=== PATIENT | female | born 1935 | race Caucasian/White ===

== ENCOUNTER 2019-08-23 21:18 | Observation (INO) | payer BC, MEDICARE ==
--- NOTE | 2019-08-23 23:15 | EDM.PDOC ---
ED HPI GENERAL MEDICAL PROBLEM - General Chief Complaint: Abdominal Pain Stated Complaint: ABDOMINAL PAIN Time Seen by Provider: 08/23/19 21:58 Source of Information: Reports: Patient History Limitations: Reports: No Limitations - History of Present Illness INITIAL COMMENTS - FREE TEXT/NARRATIVE: This is a 84yo F with pain of the right lower abdomen. She notes that she had the same pain 1 month ago and after discussing with a nurse and drinking plenty of fluids the pain resolved. She notes the pain returned today and was 10/10 pain. She had a few small BMs and noted the pain improved. She notes that the pain did come back and that is when she came to the ER. She denies any prior abdominal history except for a hysterectomy. No family history of IBD, or bowel issues. She denies hematochezia. She feels the pain more localized in the right lower quadrant. Onset: Gradual Duration: Hour(s):, Getting Worse, Waxing/Waning Location: Reports: Abdomen Quality: Reports: Ache Severity: Severe Improves with: Reports: None Worsens with: Reports: None Associated Symptoms: Reports: Loss of Appetite - Related Data Allergies Allergy/AdvReac Type Severity Reaction Status Date / Time hydrocodone bitartrate Allergy Itching Verified 12/30/14 18:06 [From Vicodin] penicillin Allergy Rash Verified 12/30/14 18:06 Oxycodone ? Allergy Redness Uncoded 12/30/14 18:06 Home Meds: Home Meds RX: Aspirin [Durlaza] 162.5 mg PO DAILY 01/03/15 [History] RX: Calcium Carbonate [Tums] 500 mg PO DAILY 01/03/15 [History] RX: Multivitamin [Multi-Vitamin Daily] 1 each PO DAILY 01/03/15 [History] RX: diphenhydrAMINE [Benadryl] 25 mg PO BEDTIME PRN 01/03/15 [History] RX: Acetaminophen [Tylenol] 650 mg PO Q6H PRN #0 tablet 01/09/15 [Rx] RX: Aspirin 162 mg PO BEDTIME tab.chew 01/09/15 [Rx] RX: Calcium Carbonate [Tums] 1,000 mg PO QID PRN #0 tab.chew 01/09/15 [Rx] RX: Docusate Sodium/Sennosides [Senna Plus] 1 tab PO BEDTIME PRN #0 tablet 01/09 [Rx] RX: Polyethylene Glycol 3350 [MiraLAX] 17 gm PO DAILY PRN #0 packet 01/09/15 [Rx ] RX: traMADol [Ultram] 100 mg PO TID PRN #0 tablet 01/09/15 [Rx] Past Medical History Gastrointestinal History: Reports: Other (See Below) Other Gastrointestinal History: abd pain one month ago Other [employer] History: hysterectomy - Past Surgical History Other Musculoskeletal Surgeries/Procedures:: R hip replacements x2, L hip replacments x2, carpal tunnel surgery B Social & Family History - Tobacco Use Smoking Status *Q: Never Smoker Second Hand Smoke Exposure: No - Caffeine Use Caffeine Use: Reports: Coffee, Tea Caffeine Use Comment: very little - Recreational Drug Use Recreational Drug Use: No - Living Situation & Occupation Living situation: Reports: Occupation: Retired ED ROS GENERAL - Review of Systems Review Of Systems: Comprehensive ROS is negative, except as noted in HPI. ED EXAM, GI/ABD - Physical Exam Exam: See Below Exam Limited By: No Limitations General Appearance: Alert, WD/WN, Mild Distress Eyes: Bilateral: EOMI Ears: Normal External Exam Nose: Normal Inspection Throat/Mouth: Normal Inspection Head: Atraumatic, Normocephalic Neck: Normal Inspection Respiratory/Chest: No Respiratory Distress, Lungs Clear, Normal Breath Sounds Cardiovascular: Normal Peripheral Pulses, Regular Rate, Rhythm GI/Abdominal Exam: No Distention, No Mass, Guarding (mild guarding), Rebound ( RLQ rebound tenderness), Abnormal Bowel Sounds (decreased bowel sounds). No: Rigid Extremities: Normal Inspection Neurological: Alert, Oriented, CN II-XII Intact Course - Vital Signs Last Recorded V/S: Last Vital Signs Temp 36.2 C 08/23/19 22:59 Pulse 73 08/23/19 22:59 Resp 18 08/23/19 22:59 BP 168/78 H 08/23/19 22:59 Pulse Ox 97 08/23/19 22:59 - Orders/Labs/Meds Orders: Active Orders 24 hr Category Date Time Status Patient Status [ADT] Routine ADT 08/24/19 00:18 Ordered Bedrest Bathroom Privileges [RC] ASDIRECTED Care 08/24/19 00:18 Ordered Oxygen Therapy [RC] PRN Care 08/24/19 00:18 Ordered VTE/DVT Education [RC] Per Unit Routine Care 08/24/19 00:18 Ordered Vital Signs [RC] Q4H Care 08/24/19 00:18 Ordered Nothing per Oral Now Diet [DIET] Diet 08/24/19 Breakfast Ordered Abdomen Pelvis wo Cont [CT] Stat Exams 08/23/19 22:20 Taken Abdomen Pelvis wo Cont [CT] Timed Exams 08/24/19 03:30 Ordered CBC WITH AUTO DIFF [HEME] AM Lab 08/24/19 05:11 Ordered LACTIC ACID [CHEM] AM Lab 08/26/19 05:11 Ordered Naproxen [Naprosyn] Med 08/24/19 00:23 Ordered 500 mg PO Q12HR PRN Sodium Chloride 0.9% [Saline Flush] Med 08/24/19 00:18 Ordered 10 ml FLUSH ASDIRECTED PRN cefTRIAXone [Rocephin] 1 gm Med 08/24/19 00:30 Ordered Sodium Chloride 0.9% [Normal Saline] 50 ml IV Q24H Peripheral IV Insertion Adult [OM.PC] Routine Oth 08/24/19 00:18 Ordered Resuscitation Status Routine Resus Stat 08/24/19 00:18 Ordered Medication Orders Ceftriaxone Sodium 1 gm/ (Sodium Chloride) 50 mls @ 200 mls/hr IV Q24H [facility] Labs: Laboratory Tests 08/23/19 08/23/19 08/23/19 Range/Units 22:32 22:32 22:32 WBC 6.8 (4.0-11.0) K/uL RBC 4.71 (3.80-5.80) M/uL Hgb 14.8 D (11.5-16.5) g/dL Hct 42.6 D (37.0-47.0) % MCV 90 (76-96) fL MCH 31.4 (27.0-32.0) pg MCHC 34.7 (31.0-35.0) g/dL RDW 13.7 (11.0-16.0) % Plt Count 220 D (150-500) K/uL MPV 10.6 H (6.0-10.0) fL Neut % (Auto) 85.3 H (45.0-70.0) % Lymph % (Auto) 7.9 L (20.0-40.0) % [place] % (Auto) 6.6 (3.0-10.0) % Eos % (Auto) 0.1 L (1.0-5.0) % Baso % (Auto) 0.1 (0.0-0.5) % Neut # (Auto) 5.83 (2.00-7.50) K/uL Lymph # (Auto) 0.54 L (1.50-4.00) K/uL [place] # (Auto) 0.45 (0.20-0.80) K/uL Eos # (Auto) 0.01 L (0.04-0.40) K/uL Baso # (Auto) 0.01 L (0.02-0.10) K/uL Sodium 135 L (136-145) mmol/L Potassium 5.1 (3.5-5.1) mmol/L Chloride 99 (98-107) mmol/L Carbon Dioxide 24.8 (21.0-32.0) mmol/L Anion Gap 16.3 H (5.0-15.0) mmol/L BUN 30 H (8-26) mg/dL Creatinine 0.80 (0.55-1.02) mg/dL Est Cr Clr Drug Dosing TNP Estimated GFR (MDRD) > 60 (>60) MLS/MIN BUN/Creatinine Ratio 37.5 H (6-25) Glucose 121 H D (74-100) mg/dL Lactic Acid 2.3 H (0.4-2.0) mmol/L Calcium 9.6 (8.5-10.1) mg/dL Total Bilirubin 1.0 (0.0-1.0) mg/dL AST 28 (15-37) U/L ALT 27 (12-78) U/L Alkaline Phosphatase 69 (46-116) U/L Total Protein 6.8 (6.4-8.2) g/dL Albumin 3.6 (3.4-5.0) g/dL Globulin 3.2 (2.2-4.2) g/dL Albumin/Globulin Ratio 1.1 (0.8-2.0) Meds: Medications Generic Name Dose Route Start Last Admin Trade Name Freq PRN Reason Stop Dose Admin Ceftriaxone Sodium 1 gm/ 50 mls @ 200 mls/hr 08/24/19 00:30 Sodium Chloride IV Q24H SAV - Re-Assessments/Exams Free Text/Narrative Re-Assessment/Exam: FRANCOIS Sadler called regarding imaging. He would like a repeat in 3-4 hours with repeat oral contrast to visualize the cecum and appendix. Departure - Departure Time of Disposition: 00:25 Disposition: Refer to Observation Condition: Fair Clinical Impression: Acute abdomen - Discharge Information Referrals: PCP,None [Primary Care Provider] - Forms: ED Department Discharge, ED Return to Work/School Form Sepsis Event Note - Evaluation Sepsis Screening Result: No Definite Risk - Focused Exam Vital Signs: Vital Signs Temp Pulse Resp BP Pulse Ox 08/23/19 22:59 36.2 C 73 18 168/78 H 97 08/23/19 21:54 36.6 C 74 20 173/70 H 90 L Date Exam was Performed: 08/24/19 Time Exam was Performed: 00:24 - Problem List & Annotations (1) Acute abdomen SNOMED Code(s): 3972271 Code(s): R10.0 - ACUTE ABDOMEN Status: Acute Priority: High Current Visit: Yes - Problem List Review Problem List Initiated/Reviewed/Updated: Yes - My Orders Last 24 Hours: My Active Orders 08/23/19 22:20 Abdomen Pelvis wo Cont [CT] Stat 08/24/19 00:18 Patient Status [ADT] Routine Bedrest Bathroom Privileges [RC] ASDIRECTED Oxygen Therapy [RC] PRN VTE/DVT Education [RC] Per Unit Routine Vital Signs [RC] Q4H Sodium Chloride 0.9% [Saline Flush] 10 ml FLUSH ASDIRECTED PRN Peripheral IV Insertion Adult [OM.PC] Routine Resuscitation Status Routine 08/24/19 00:23 Naproxen [Naprosyn] 500 mg PO Q12HR PRN 08/24/19 00:30 cefTRIAXone [Rocephin] 1 gm Sodium Chloride 0.9% [Normal Saline] 50 ml IV Q24H 08/24/19 03:30 Abdomen Pelvis wo Cont [CT] Timed 08/24/19 05:11 CBC WITH AUTO DIFF [HEME] AM 08/24/19 Breakfast Nothing per Oral Now Diet [DIET] 08/26/19 05:11 LACTIC ACID [CHEM] AM - Assessment/Plan Last 24 Hours: My Active Orders 08/23/19 22:20 Abdomen Pelvis wo Cont [CT] Stat 08/24/19 00:18 Patient Status [ADT] Routine Bedrest Bathroom Privileges [RC] ASDIRECTED Oxygen Therapy [RC] PRN VTE/DVT Education [RC] Per Unit Routine Vital Signs [RC] Q4H Sodium Chloride 0.9% [Saline Flush] 10 ml FLUSH ASDIRECTED PRN Peripheral IV Insertion Adult [OM.PC] Routine Resuscitation Status Routine 08/24/19 00:23 Naproxen [Naprosyn] 500 mg PO Q12HR PRN 08/24/19 00:30 cefTRIAXone [Rocephin] 1 gm Sodium Chloride 0.9% [Normal Saline] 50 ml IV Q24H 08/24/19 03:30 Abdomen Pelvis wo Cont [CT] Timed 08/24/19 05:11 CBC WITH AUTO DIFF [HEME] AM 08/24/19 Breakfast Nothing per Oral Now Diet [DIET] 08/26/19 05:11 LACTIC ACID [CHEM] AM Plan: Patient to be placed in observation for repeat CT scan, antibiotics, and pain management. F/u labs in AM.
[2019-08-24] MEDS ORDERED: Sodium Chloride 0.9% 10 ML Syringe FLUSH PRN (00:18)
[2019-08-24] MEDS ORDERED: Naproxen 500 MG Tab PO PRN (00:23)
[2019-08-24] MEDS ORDERED: cefTRIAXone 1 GM in Sodium Chloride 0.9% 50 ML IV SCH ×2 (00:30→08:02)
[2019-08-24] MEDS: Sodium Chloride 0.9% 1,000 ML IV SCH ×2 (00:43→18:20)
[2019-08-24] MEDS ORDERED: Lisinopril 5 MG Tab ONE (01:42)
[2019-08-24] MEDS ORDERED: Naproxen 250 MG Tab PO SCH (08:00)
--- NOTE | 2019-08-24 08:15 | CT ---
DATE OF SERVICE: 08/23/2019 CLINICAL DATA: Acute abdomen. UNENHANCED ABDOMEN AND PELVIC CT: Multislice acquisition through the abdomen and pelvis without IV, but oral contrast was performed. No priors. There is minimal atelectatic change in the dependent portion of both lower lungs. The lung bases are otherwise clear. The heart size is normal. There are mild coronary artery calcifications. There are calcifications in the region of the aortic valve . The liver is normal size with homogeneous attenuation. No focal hepatic lesions. The gallbladder is mildly distended. No pericholecystic fluid. No calcified gallstones. The spleen appears normal. The pancreas appears normal. The right and left adrenals appear normal. The right and left kidneys appear normal. No nephrocalcinosis or nephrolithiasis. No hydronephrosis or hydroureter. The patient is status post bilateral total hip arthroplasty. These do produce significant beam hardening and streak artifact obscuring adjacent structures. The bladder is not adequately seen. I cannot exclude bladder pathology. The appendix is not clearly seen. No evidence of appendicitis. There are multiple fluid filled loops of small bowel within the mid and lower abdomen and pelvis. They are not distended. There is mild mural thickening in several of these loops of small bowel. Enteritis should be considered. Followup imaging is recommended if clinically indicated. No free air. No free fluid. No adenopathy. No aortic aneurysm. [id number] MTDD
--- NOTE | 2019-08-24 08:24 | CT ---
DATE OF SERVICE: 08/24/2019 CLINICAL DATA: Acute abdomen. UNENHANCED ABDOMEN AND PELVIC CT: Multislice acquisition through the abdomen and pelvis without IV, but with oral contrast was performed. Comparison is made to a prior exam dated 08/23/2019. The liver, gallbladder, spleen, pancreas, right and left adrenals, right and left kidneys are stable. Again the patient is status post bilateral hip arthroplasty producing significant beam hardening and streak artifact obscuring adjacent structures. The appendix is not clearly seen. I do not see any definite evidence for appendicitis. There is a small amount of free fluid within the pelvis that was not present on the prior study. There is contrast throughout the small bowel into the colon as well as throughout the colon to the rectum. There are scattered air-fluid levels within the small bowel. There is mild mural thickening involving multiple loops of small bowel. Again enteritis should be considered. Followup imaging is recommended if clinically indicated. No free air. The exam is otherwise unchanged from the prior. [id number] [facility]
--- NOTE | 2019-08-24 08:45 | PCM.PN ---
- General Info Date of Service: 08/24/19 Subjective Update: Patient notes her pain is a 2/10 at this time. She notes her symptoms have improved greatly and denies any fever or chills. No chest pain or shortness of breath. Patient has had multiple large stools of soft to liquid consistency likely due to her laxative use yesterday. No new concerns or symptoms. Functional Status: Reports: Pain Controlled - Review of Systems General: Reports: No Symptoms HEENT: Reports: No Symptoms Pulmonary: Reports: No Symptoms Cardiovascular: Reports: No Symptoms Gastrointestinal: Reports: Abdominal Pain, Diarrhea Genitourinary: Reports: No Symptoms Musculoskeletal: Reports: No Symptoms Skin: Reports: No Symptoms Neurological: Reports: No Symptoms - Patient Data Vitals - Most Recent: Last Vital Signs Temp 37.3 C 08/24/19 08:00 Pulse 75 08/24/19 08:00 Resp 14 08/24/19 08:00 BP 141/49 H 08/24/19 08:00 Pulse Ox 97 08/24/19 08:00 Weight - Most Recent: 69.4 kg I&O - Last 24 Hours: Intake & Output 08/23/19 08/24/19 08/24/19 22:59 06:59 14:59 Intake Total 590 Output Total 1 Balance 589 Lab Results Last 24 Hours: Laboratory Results - last 24 hr 08/23/19 08/23/19 08/23/19 Range/Units 22:32 22:32 22:32 WBC 6.8 (4.0-11.0) K/uL RBC 4.71 (3.80-5.80) M/uL Hgb 14.8 D (11.5-16.5) g/dL Hct 42.6 D (37.0-47.0) % MCV 90 (76-96) fL MCH 31.4 (27.0-32.0) pg MCHC 34.7 (31.0-35.0) g/dL RDW 13.7 (11.0-16.0) % Plt Count 220 D (150-500) K/uL MPV 10.6 H (6.0-10.0) fL Neut % (Auto) 85.3 H (45.0-70.0) % Lymph % (Auto) 7.9 L (20.0-40.0) % [place] % (Auto) 6.6 (3.0-10.0) % Eos % (Auto) 0.1 L (1.0-5.0) % Baso % (Auto) 0.1 (0.0-0.5) % Neut # (Auto) 5.83 (2.00-7.50) K/uL Lymph # (Auto) 0.54 L (1.50-4.00) K/uL [place] # (Auto) 0.45 (0.20-0.80) K/uL Eos # (Auto) 0.01 L (0.04-0.40) K/uL Baso # (Auto) 0.01 L (0.02-0.10) K/uL Sodium 135 L (136-145) mmol/L Potassium 5.1 (3.5-5.1) mmol/L Chloride 99 (98-107) mmol/L Carbon Dioxide 24.8 (21.0-32.0) mmol/L Anion Gap 16.3 H (5.0-15.0) mmol/L BUN 30 H (8-26) mg/dL Creatinine 0.80 (0.55-1.02) mg/dL Est Cr Clr Drug Dosing TNP Estimated GFR (MDRD) > 60 (>60) MLS/MIN BUN/Creatinine Ratio 37.5 H (6-25) Glucose 121 H D (74-100) mg/dL Lactic Acid 2.3 H (0.4-2.0) mmol/L Calcium 9.6 (8.5-10.1) mg/dL Total Bilirubin 1.0 (0.0-1.0) mg/dL AST 28 (15-37) U/L ALT 27 (12-78) U/L Alkaline Phosphatase 69 (46-116) U/L Total Protein 6.8 (6.4-8.2) g/dL Albumin 3.6 (3.4-5.0) g/dL Globulin 3.2 (2.2-4.2) g/dL Albumin/Globulin Ratio 1.1 (0.8-2.0) / Range/Units 07:10 WBC 10.6 D (4.0-11.0) K/uL RBC 4.43 (3.80-5.80) M/uL Hgb 13.7 (11.5-16.5) g/dL Hct 39.7 (37.0-47.0) % MCV 90 (76-96) fL MCH 30.9 (27.0-32.0) pg MCHC 34.5 (31.0-35.0) g/dL RDW 13.7 (11.0-16.0) % Plt Count 236 (150-500) K/uL MPV 11.2 H (6.0-10.0) fL Neut % (Auto) 87.7 H (45.0-70.0) % Lymph % (Auto) 7.3 L (20.0-40.0) % [place] % (Auto) 4.9 (3.0-10.0) % Eos % (Auto) 0.0 L (1.0-5.0) % Baso % (Auto) 0.1 (0.0-0.5) % Neut # (Auto) 9.32 H (2.00-7.50) K/uL Lymph # (Auto) 0.77 L (1.50-4.00) K/uL [place] # (Auto) 0.52 (0.20-0.80) K/uL Eos # (Auto) 0.00 L (0.04-0.40) K/uL Baso # (Auto) 0.01 L (0.02-0.10) K/uL Sodium (136-145) mmol/L Potassium (3.5-5.1) mmol/L Chloride (98-107) mmol/L Carbon Dioxide (21.0-32.0) mmol/L Anion Gap (5.0-15.0) mmol/L BUN (8-26) mg/dL Creatinine (0.55-1.02) mg/dL Est Cr Clr Drug Dosing Estimated GFR (MDRD) (>60) MLS/MIN BUN/Creatinine Ratio (6-25) Glucose (74-100) mg/dL Lactic Acid (0.4-2.0) mmol/L Calcium (8.5-10.1) mg/dL Total Bilirubin (0.0-1.0) mg/dL AST (15-37) U/L ALT (12-78) U/L Alkaline Phosphatase (46-116) U/L Total Protein (6.4-8.2) g/dL Albumin (3.4-5.0) g/dL Globulin (2.2-4.2) g/dL Albumin/Globulin Ratio (0.8-2.0) Med Orders - Current: Current Medications Sodium Chloride (Normal Saline) 1,000 mls @ 125 mls/hr IV ASDIRECTED [facility] Last Admin: 08/24/19 00:43 Dose: 125 mls/hr Ceftriaxone Sodium 1 gm/ (Sodium Chloride) 50 mls @ 200 mls/hr IV Q24H [facility] Lisinopril (Prinivil) 5 mg PO DAILY [facility] Naproxen (Naprosyn) 500 mg PO Q12HR PRN PRN Reason: Pain Sodium Chloride (Saline Flush) 10 ml FLUSH ASDIRECTED PRN PRN Reason: Keep Vein Open Discontinued Medications Ceftriaxone Sodium 1 gm/ (Sodium Chloride) 50 mls @ 200 mls/hr IV Q24H [facility] Last Admin: 08/24/19 00:42 Dose: 200 mls/hr Ceftriaxone Sodium 1 gm/ (Sodium Chloride) 50 mls @ 200 mls/hr IV Q24H [facility] Lisinopril (Prinivil) Confirm Administered Dose 5 mg .ROUTE .STK-MED ONE Stop: 08/24/19 01:43 Last Admin: 08/24/19 01:48 Dose: 5 mg Naproxen (Naprosyn) 400 mg PO Q12HR [facility] - Exam General: Alert, Oriented, Cooperative HEENT: Pupils Equal, Pupils Reactive, EOMI Neck: Supple Lungs: Clear to Auscultation, Normal Respiratory Effort Cardiovascular: Regular Rate, Regular Rhythm GI/Abdominal Exam: Normal Bowel Sounds, Soft, Tender Back Exam: Normal Inspection Extremities: Normal Inspection, Normal Range of Motion Neurological: No New Focal Deficit Psy/Mental Status: Alert, Normal Affect, Normal Mood Sepsis Event Note - Evaluation Sepsis Screening Result: No Definite Risk - Focused Exam Vital Signs: Vital Signs Temp Pulse Resp BP BP Pulse Ox 08/24/19 08:00 37.3 C 75 14 141/49 H 97 08/24/19 03:37 36.4 C 81 18 155/61 H 100 08/24/19 01:48 137/103 H 08/24/19 00:18 36.1 C 83 18 137/103 H 94 L 08/23/19 22:59 36.2 C 73 18 168/78 H 97 08/23/19 21:54 36.6 C 74 20 173/70 H 90 L Date Exam was Performed: 08/24/19 Time Exam was Performed: 08:39 - Problem List & Annotations (1) Acute abdomen SNOMED Code(s): 3128522 Code(s): R10.0 - ACUTE ABDOMEN Status: Acute Priority: High Current Visit: Yes - Problem List Review Problem List Initiated/Reviewed/Updated: Yes - My Orders Last 24 Hours: My Active Orders 08/23/19 22:20 Abdomen Pelvis wo Cont [CT] Stat 08/24/19 00:18 Patient Status [ADT] Routine Bedrest Bathroom Privileges [RC] ASDIRECTED VTE/DVT Education [RC] Per Unit Routine Vital Signs [RC] 04,08,12,16,20 Sodium Chloride 0.9% [Saline Flush] 10 ml FLUSH ASDIRECTED PRN Peripheral IV Insertion Adult [OM.PC] Routine Resuscitation Status Routine 08/24/19 00:23 Naproxen [Naprosyn] 500 mg PO Q12HR PRN 08/24/19 00:45 Sodium Chloride 0.9% [Normal Saline] 1,000 ml IV ASDIRECTED 08/24/19 07:11 CULTURE MRSA SURVEY [RM] Routine 08/24/19 20:00 lisinopriL [Prinivil] 5 mg PO DAILY 08/24/19 Breakfast Advance Diet Instructions [DIET] Nothing per Oral Now Diet [DIET] 08/26/19 00:30 cefTRIAXone [Rocephin] 1 gm Sodium Chloride 0.9% [Normal Saline] 50 ml IV Q24H 08/26/19 05:11 LACTIC ACID [CHEM] AM - Plan Plan:: Patient to continue on Rocephin. F/u labs today. Continue current management for pain. Discussed discharge planning if symptoms start to resolve.
[2019-08-24] MEDS ORDERED: metroNIDAZOLE/Normal Saline 500 MG in Premix Bag 1 BAG IV SCH (09:00)
[2019-08-24] MEDS ORDERED: Ciprofloxacin in D5W 400 MG in Premix Bag 1 BAG IV SCH ×2 (10:00)
[2019-08-24] MEDS ORDERED: Ciprofloxacin in D5W 200 ML IV SCH (10:00)
[2019-08-24] MEDS ORDERED: METRONIDAZOLE IV SCH (10:15)
[2019-08-24] MEDS ORDERED: NORMAL SALINE IV SCH (10:15)
[2019-08-24] MEDS: Ciprofloxacin in D5W 200 ML IV SCH ×2 (10:28→18:21)
[2019-08-24] MEDS: metroNIDAZOLE/Normal Saline 100 ML IV SCH ×2 (11:32→19:30)
[2019-08-24] MEDS ORDERED: traMADol 50 MG Tab PO PRN (16:27)
[2019-08-24] MEDS ORDERED: Acetaminophen 325 MG Tab PO PRN (16:27)
[2019-08-24] MEDS ORDERED: Lisinopril 5 MG Tab PO SCH (20:00)
[2019-08-24] MEDS ORDERED: Calcium Carbonate 500 MG Tab.Chew PO PRN (23:52)
[2019-08-25] MEDS ORDERED: diphenhydrAMINE 50 MG Cap PO ONE (00:09)
[2019-08-25] MEDS ORDERED: diphenhydrAMINE 50 MG Cap ONE (00:21)
[2019-08-25] MEDS: Ciprofloxacin in D5W 200 ML IV SCH ×2 (02:01→10:00)
[2019-08-25] MEDS: metroNIDAZOLE/Normal Saline 100 ML IV SCH (03:51)
[2019-08-25] MEDS: Sodium Chloride 0.9% 1,000 ML IV SCH (06:10)
--- NOTE | 2019-08-25 08:46 | PCM.PN ---
- General Info Date of Service: 08/25/19 Subjective Update: Patient states she is doing much better and wants to go home. Per nursing she vomited yesterday and a little this morning but has been having liquid stools over night. She has some flushing which is believed to be from her antibiotics. She notes her pain a 2/10 and much improved. She denies any other issues. Functional Status: Reports: Pain Controlled, Other (vomitted twice) - Review of Systems General: Reports: No Symptoms HEENT: Reports: No Symptoms Pulmonary: Reports: No Symptoms Cardiovascular: Reports: No Symptoms Gastrointestinal: Reports: Abdominal Pain, Decreased Appetite, Diarrhea, Nausea , Vomiting Genitourinary: Reports: No Symptoms Musculoskeletal: Reports: No Symptoms Skin: Reports: No Symptoms Neurological: Reports: No Symptoms Psychiatric: Reports: No Symptoms - Patient Data Vitals - Most Recent: Last Vital Signs Temp 36.9 C 08/25/19 04:00 Pulse 77 08/25/19 04:00 Resp 16 08/25/19 04:00 BP 171/63 H 08/25/19 04:00 Pulse Ox 98 08/25/19 04:00 Weight - Most Recent: 69.4 kg I&O - Last 24 Hours: Intake & Output 08/24/19 08/25/19 08/25/19 22:59 06:59 14:59 Intake Total 240 300 Balance 240 300 Lab Results Last 24 Hours: Laboratory Results - last 24 hr 08/24/19 08/25/19 08/25/19 Range/Units 07:15 07:00 07:00 WBC 11.7 H (4.0-11.0) K/uL RBC 4.21 (3.80-5.80) M/uL Hgb 13.1 (11.5-16.5) g/dL Hct 37.9 (37.0-47.0) % MCV 90 (76-96) fL MCH 31.1 (27.0-32.0) pg MCHC 34.6 (31.0-35.0) g/dL RDW 13.9 (11.0-16.0) % Plt Count 221 (150-500) K/uL MPV 11.1 H (6.0-10.0) fL Neut % (Auto) 91.2 H (45.0-70.0) % Lymph % (Auto) 5.4 L (20.0-40.0) % Wayne % (Auto) 3.0 (3.0-10.0) % Eos % (Auto) 0.3 L (1.0-5.0) % Baso % (Auto) 0.1 (0.0-0.5) % Neut # (Auto) 10.65 H (2.00-7.50) K/uL Lymph # (Auto) 0.63 L (1.50-4.00) K/uL [place] # (Auto) 0.35 (0.20-0.80) K/uL Eos # (Auto) 0.03 L (0.04-0.40) K/uL Baso # (Auto) 0.01 L (0.02-0.10) K/uL Sodium 136 (136-145) mmol/L Potassium 3.8 D (3.5-5.1) mmol/L Chloride 101 (98-107) mmol/L Carbon Dioxide 24.7 (21.0-32.0) mmol/L Anion Gap 14.1 (5.0-15.0) mmol/L BUN 18 D (8-26) mg/dL Creatinine 0.74 (0.55-1.02) mg/dL Est Cr Clr Drug Dosing 48.87 mL/min Estimated GFR (MDRD) > 60 (>60) MLS/MIN BUN/Creatinine Ratio 24.3 (6-25) Glucose 105 H (74-100) mg/dL Lactic Acid 2.2 H (0.4-2.0) mmol/L Calcium 9.2 (8.5-10.1) mg/dL Total Bilirubin 0.6 D (0.0-1.0) mg/dL AST 23 (15-37) U/L ALT 22 (12-78) U/L Alkaline Phosphatase 73 (46-116) U/L Total Protein 6.3 L (6.4-8.2) g/dL Albumin 3.0 L (3.4-5.0) g/dL Globulin 3.3 (2.2-4.2) g/dL Albumin/Globulin Ratio 0.9 (0.8-2.0) Donell Results Last 24 Hours: Microbiology 08/24/19 Unknown MRSA Surveillance Culture - Final Nares, Right NO MRSA ISOLATED Med Orders - Current: Current Medications Acetaminophen (Tylenol) 650 mg PO Q6H PRN PRN Reason: Abdominal Pain Last Admin: 08/24/19 17:07 Dose: 650 mg Calcium Carbonate/Glycine (Tums) 1,000 mg PO Q2HR PRN PRN Reason: Indigestion Last Admin: 08/25/19 00:08 Dose: 1,000 mg Sodium Chloride (Normal Saline) 1,000 mls @ 125 mls/hr IV ASDIRECTED [facility] Last Admin: 08/25/19 06:10 Dose: 125 mls/hr Ciprofloxacin/Dextrose (Cipro In D5w 400 Mg/200 Ml) 200 mls @ 200 mls/hr IV Q8H [facility] Last Admin: 08/25/19 02:01 Dose: 200 mls/hr Metronidazole (Flagyl 500 Mg In Ns 100 Ml) 100 mls @ 100 mls/hr IV Q8H [facility] Last Admin: 08/25/19 03:51 Dose: 100 mls/hr Lisinopril (Prinivil) 5 mg PO DAILY [facility] Last Admin: 08/24/19 19:45 Dose: 5 mg Naproxen (Naprosyn) 500 mg PO Q12HR PRN PRN Reason: Pain Last Admin: 08/24/19 16:00 Dose: 500 mg Sodium Chloride (Saline Flush) 10 ml FLUSH ASDIRECTED PRN PRN Reason: Keep Vein Open Tramadol HCl (Ultram) 50 mg PO Q6H PRN PRN Reason: Pain (severe 7-10) Discontinued Medications Diphenhydramine HCl (Benadryl) 50 mg PO ONETIME ONE Stop: 08/25/19 00:10 Last Admin: 08/25/19 00:22 Dose: 50 mg Diphenhydramine HCl (Benadryl) Confirm Administered Dose 50 mg .ROUTE .STK-MED ONE Stop: 08/25/19 00:22 Last Admin: 08/25/19 00:30 Dose: Not Given Ceftriaxone Sodium 1 gm/ (Sodium Chloride) 50 mls @ 200 mls/hr IV Q24H [facility] Last Admin: 08/24/19 00:42 Dose: 200 mls/hr Ceftriaxone Sodium 1 gm/ (Sodium Chloride) 50 mls @ 200 mls/hr IV Q24H [facility] Ceftriaxone Sodium 1 gm/ (Sodium Chloride) 50 mls @ 200 mls/hr IV Q24H [facility] Ciprofloxacin/Dextrose 400 mg/ (Premix) 200 mls @ 200 mls/hr IV Q8H [facility] Ciprofloxacin/Dextrose (Cipro In D5w 400 Mg/200 Ml) 200 mls @ 200 mls/hr IV Q12H [facility] Metronidazole (Flagyl 500 Mg In Ns 100 Ml) 50 mls @ 50 mls/hr IV Q8H [facility] Lisinopril (Prinivil) Confirm Administered Dose 5 mg .ROUTE .STK-MED ONE Stop: 08/24/19 01:43 Last Admin: 08/24/19 01:48 Dose: 5 mg Naproxen (Naprosyn) 400 mg PO Q12HR [facility] - Exam General: Alert, Oriented, Cooperative HEENT: Pupils Equal, Pupils Reactive, EOMI Neck: Supple Lungs: Clear to Auscultation, Normal Respiratory Effort Cardiovascular: Regular Rate, Regular Rhythm GI/Abdominal Exam: Normal Bowel Sounds, Soft, Tender Back Exam: Normal Inspection Extremities: Normal Inspection Neurological: No New Focal Deficit Psy/Mental Status: Alert, Normal Affect, Normal Mood Sepsis Event Note - Evaluation Sepsis Screening Result: No Definite Risk - Focused Exam Vital Signs: Vital Signs Temp Pulse Resp BP Pulse Ox 08/25/19 04:00 36.9 C 77 16 171/63 H 98 08/25/19 00:00 36.8 C 76 18 103/55 L 97 Date Exam was Performed: 08/25/19 Time Exam was Performed: 08:31 - Problem List & Annotations (1) Acute abdomen SNOMED Code(s): 4099426 Code(s): R10.0 - ACUTE ABDOMEN Status: Acute Priority: High Current Visit: Yes - Problem List Review Problem List Initiated/Reviewed/Updated: Yes - My Orders Last 24 Hours: My Active Orders 08/24/19 10:00 Ciprofloxacin in D5W [Cipro in D5W 400 MG/200 ML] 200 ml IV Q8H 08/24/19 10:15 metroNIDAZOLE/Normal Saline [Flagyl 500 MG in NS 100 ML] 100 ml IV Q8H 08/24/19 16:27 Acetaminophen [Tylenol] 650 mg PO Q6H PRN traMADol [Ultram] 50 mg PO Q6H PRN 08/24/19 20:00 lisinopriL [Prinivil] 5 mg PO DAILY 05/28/20 23:52 Calcium Carbonate [Tums] 1,000 mg PO Q2HR PRN 08/25/19 05:11 LACTIC ACID [CHEM] Routine 08/25/19 08:30 Abdomen Pelvis wo Cont [CT] Routine - Plan Plan:: Patient to continue on Rocephin. F/u labs today. Continue current management for pain. Discussed discharge planning if symptoms start to resolve. 08/25/19 Patient counseled on continued concern for ileus and enteritis. Discussed the need for continued management and monitoring. Discussed use of benadryl for flushing. Discussed repeat abdominal scan due to continued pain and vomiting/diarrhea. Improved symptoms and patient requires close monitoring. We will setup for surgical consult if symptoms do not continue to improve.
[2019-08-25] MEDS ORDERED: Ondansetron 4 MG/2 ML SDV ONE (09:53)
[2019-08-25] MEDS ORDERED: Ondansetron 4 MG/2 ML SDV IVPUSH SCH (10:00)
--- NOTE | 2019-08-25 11:28 | PCM.DCSUM1 ---
Discharge Summary - Discharge Data Discharge Date: 08/25/19 Discharge Disposition: DC/Tfer to Acute Hospital 02 Condition: Fair - Referral to Home Health Primary Care Physician: PCP None - Discharge Diagnosis/Problem(s) (1) Acute abdomen SNOMED Code(s): 4559481 ICD Code: R10.0 - ACUTE ABDOMEN Status: Acute Priority: High Current Visit: Yes - Patient Instructions Diet: NPO - Discharge Plan Home Medications: Home Meds Ibuprofen [Advil Liqui-Gels] 400 mg PO BEDTIME 08/24/19 [History] Naproxen [Naprosyn] 500 tab PO DAILY 08/24/19 [History] lisinopriL [Lisinopril] 5 mg PO DAILY 08/24/19 [History] Forms: ED Department Discharge, ED Return to Work/School Form Referrals: PCP,None [Primary Care Provider] - - Discharge Summary/Plan Comment DC Time >30 min.: No Discharge Summary/Plan Comment: Counseled patient on the need for surgical assessment and management. Patient will be transferred to [facility] under Dr. Mcgregor with Dr. Jose on consult. Images sent via Pacs and hard copy. Patient has notified her . - Patient Data Vitals - Most Recent: Last Vital Signs Temp 36.9 C 08/25/19 04:00 Pulse 77 08/25/19 04:00 Resp 16 08/25/19 04:00 BP 171/63 H 08/25/19 04:00 Pulse Ox 98 08/25/19 04:00 Weight - Most Recent: 69.4 kg I&O - Last 24 hours: Intake & Output 08/24/19 08/25/19 08/25/19 22:59 06:59 14:59 Intake Total 240 300 Balance 240 300 Lab Results - Last 24 hrs: Laboratory Results - last 24 hr 08/24/19 08/25/19 08/25/19 Range/Units 07:15 07:00 07:00 WBC 11.7 H (4.0-11.0) K/uL RBC 4.21 (3.80-5.80) M/uL Hgb 13.1 (11.5-16.5) g/dL Hct 37.9 (37.0-47.0) % MCV 90 (76-96) fL MCH 31.1 (27.0-32.0) pg MCHC 34.6 (31.0-35.0) g/dL RDW 13.9 (11.0-16.0) % Plt Count 221 (150-500) K/uL MPV 11.1 H (6.0-10.0) fL Neut % (Auto) 91.2 H (45.0-70.0) % Lymph % (Auto) 5.4 L (20.0-40.0) % [place] % (Auto) 3.0 (3.0-10.0) % Eos % (Auto) 0.3 L (1.0-5.0) % Baso % (Auto) 0.1 (0.0-0.5) % Neut # (Auto) 10.65 H (2.00-7.50) K/uL Lymph # (Auto) 0.63 L (1.50-4.00) K/uL [place] # (Auto) 0.35 (0.20-0.80) K/uL Eos # (Auto) 0.03 L (0.04-0.40) K/uL Baso # (Auto) 0.01 L (0.02-0.10) K/uL Sodium 136 (136-145) mmol/L Potassium 3.8 D (3.5-5.1) mmol/L Chloride 101 (98-107) mmol/L Carbon Dioxide 24.7 (21.0-32.0) mmol/L Anion Gap 14.1 (5.0-15.0) mmol/L BUN 18 D (8-26) mg/dL Creatinine 0.74 (0.55-1.02) mg/dL Est Cr Clr Drug Dosing 48.87 mL/min Estimated GFR (MDRD) > 60 (>60) MLS/MIN BUN/Creatinine Ratio 24.3 (6-25) Glucose 105 H (74-100) mg/dL Lactic Acid 2.2 H (0.4-2.0) mmol/L Calcium 9.2 (8.5-10.1) mg/dL Total Bilirubin 0.6 D (0.0-1.0) mg/dL AST 23 (15-37) U/L ALT 22 (12-78) U/L Alkaline Phosphatase 73 (46-116) U/L Total Protein 6.3 L (6.4-8.2) g/dL Albumin 3.0 L (3.4-5.0) g/dL Globulin 3.3 (2.2-4.2) g/dL Albumin/Globulin Ratio 0.9 (0.8-2.0) 08/25/19 Range/Units 07:00 WBC (4.0-11.0) K/uL RBC (3.80-5.80) M/uL Hgb (11.5-16.5) g/dL Hct (37.0-47.0) % MCV (76-96) fL MCH (27.0-32.0) pg MCHC (31.0-35.0) g/dL RDW (11.0-16.0) % Plt Count (150-500) K/uL MPV (6.0-10.0) fL Neut % (Auto) (45.0-70.0) % Lymph % (Auto) (20.0-40.0) % [place] % (Auto) (3.0-10.0) % Eos % (Auto) (1.0-5.0) % Baso % (Auto) (0.0-0.5) % Neut # (Auto) (2.00-7.50) K/uL Lymph # (Auto) (1.50-4.00) K/uL [place] # (Auto) (0.20-0.80) K/uL Eos # (Auto) (0.04-0.40) K/uL Baso # (Auto) (0.02-0.10) K/uL Sodium (136-145) mmol/L Potassium (3.5-5.1) mmol/L Chloride (98-107) mmol/L Carbon Dioxide (21.0-32.0) mmol/L Anion Gap (5.0-15.0) mmol/L BUN (8-26) mg/dL Creatinine (0.55-1.02) mg/dL Est Cr Clr Drug Dosing mL/min Estimated GFR (MDRD) (>60) MLS/MIN BUN/Creatinine Ratio (6-25) Glucose (74-100) mg/dL Lactic Acid 0.9 (0.4-2.0) mmol/L Calcium (8.5-10.1) mg/dL Total Bilirubin (0.0-1.0) mg/dL AST (15-37) U/L ALT (12-78) U/L Alkaline Phosphatase (46-116) U/L Total Protein (6.4-8.2) g/dL Albumin (3.4-5.0) g/dL Globulin (2.2-4.2) g/dL Albumin/Globulin Ratio (0.8-2.0) CARYL Results - Last 24 hrs: Microbiology 08/24/19 Unknown MRSA Surveillance Culture - Final Nares, Right NO MRSA ISOLATED Med Orders - Current: Current Medications Acetaminophen (Tylenol) 650 mg PO Q6H PRN PRN Reason: Abdominal Pain Last Admin: 08/24/19 17:07 Dose: 650 mg Calcium Carbonate/Glycine (Tums) 1,000 mg PO Q2HR PRN PRN Reason: Indigestion Last Admin: 08/25/19 00:08 Dose: 1,000 mg Sodium Chloride (Normal Saline) 1,000 mls @ 125 mls/hr IV ASDIRECTED [facility] Last Admin: 08/25/19 06:10 Dose: 125 mls/hr Ciprofloxacin/Dextrose (Cipro In D5w 400 Mg/200 Ml) 200 mls @ 200 mls/hr IV Q8H [facility] Last Admin: 08/25/19 10:00 Dose: 200 mls/hr Metronidazole (Flagyl 500 Mg In Ns 100 Ml) 100 mls @ 100 mls/hr IV Q8H [facility] Last Admin: 08/25/19 03:51 Dose: 100 mls/hr Lisinopril (Prinivil) 5 mg PO DAILY [facility] Last Admin: 08/24/19 19:45 Dose: 5 mg Naproxen (Naprosyn) 500 mg PO Q12HR PRN PRN Reason: Pain Last Admin: 08/24/19 16:00 Dose: 500 mg Ondansetron HCl (Zofran) 4 mg IVPUSH Q6H [facility] Last Admin: 08/25/19 10:00 Dose: 4 mg Sodium Chloride (Saline Flush) 10 ml FLUSH ASDIRECTED PRN PRN Reason: Keep Vein Open Tramadol HCl (Ultram) 50 mg PO Q6H PRN PRN Reason: Pain (severe 7-10) Discontinued Medications Diphenhydramine HCl (Benadryl) 50 mg PO ONETIME ONE Stop: 08/25/19 00:10 Last Admin: 08/25/19 00:22 Dose: 50 mg Diphenhydramine HCl (Benadryl) Confirm Administered Dose 50 mg .ROUTE .STK-MED ONE Stop: 08/25/19 00:22 Last Admin: 08/25/19 00:30 Dose: Not Given Ceftriaxone Sodium 1 gm/ (Sodium Chloride) 50 mls @ 200 mls/hr IV Q24H [facility] Last Admin: 08/24/19 00:42 Dose: 200 mls/hr Ceftriaxone Sodium 1 gm/ (Sodium Chloride) 50 mls @ 200 mls/hr IV Q24H [facility] Ceftriaxone Sodium 1 gm/ (Sodium Chloride) 50 mls @ 200 mls/hr IV Q24H [facility] Ciprofloxacin/Dextrose 400 mg/ (Premix) 200 mls @ 200 mls/hr IV Q8H [facility] Ciprofloxacin/Dextrose (Cipro In D5w 400 Mg/200 Ml) 200 mls @ 200 mls/hr IV Q12H [facility] Metronidazole (Flagyl 500 Mg In Ns 100 Ml) 50 mls @ 50 mls/hr IV Q8H [facility] Lisinopril (Prinivil) Confirm Administered Dose 5 mg .ROUTE .STK-MED ONE Stop: 08/24/19 01:43 Last Admin: 08/24/19 01:48 Dose: 5 mg Naproxen (Naprosyn) 400 mg PO Q12HR [facility] Ondansetron HCl (Zofran) Confirm Administered Dose 4 mg .ROUTE .STK-MED ONE Stop: 08/25/19 09:54
[2019-08-25 11:35] VITALS: BP 159/55; PULSE 78
[2019-08-26] MEDS ORDERED: cefTRIAXone 1 GM in Sodium Chloride 0.9% 50 ML IV SCH (00:30)
--- NOTE | 2019-08-27 14:44 | CT ---
DATE OF SERVICE: 08/25/19 CLINICAL DATA: enteritis/ileus? UNENHANCED ABDOMEN AND PELVIC CT: Multislice acquisition through the abdomen and pelvis without IV, but with oral contrast was performed. Comparison is made to prior exams dated 08/24/19 and 08/23/19. There are numerous fluid and gas filled loops of small bowel throughout the abdomen and pelvis. These are distended and contain air fluid levels. There has been significant progression from the prior study. There is a transition within the right lower quadrant. The findings are consistent with small bowel obstruction. The remainder of the exam is essentially unchanged from the prior exam. No free air. IMPRESSION: 1. Progressive small bowel dilatation with air fluid levels and transitional point consistent with small bowel obstruction. 2. The patient's physician was notified of the findings by virtual radiologic preliminary radiology report. [id number] [facility]
== END 2019-08-25 11:45 ==
LOC: LB.ED 21:18 → LB.MS 08-24 00:18
PROVIDERS: ADMIT Family Medicine; ATTEND Family Medicine
DX: R10.0 Acute abdomen (principal); R19.7 Diarrhea, unspecified; Z88.5 Allergy status to narcotic agent; Z88.0 Allergy status to penicillin; Z79.82 Long term (current) use of aspirin; Z79.899 Other long term (current) drug therapy; Z90.710 Acquired absence of both cervix and uterus
CPT/HCPCS: 36415; 74176; 80053; 83605; 85025; 96365; 99285; A9270; J0696; J0744; J2405; J3490; J7030; J7050; A0425; A0429

== ENCOUNTER 2019-11-30 15:32 | Inpatient (IN) | payer MEDICARE ==
--- NOTE | 2019-11-30 16:26 | EDM.PDOC ---
ED HPI GENERAL MEDICAL PROBLEM - General Chief Complaint: Abdominal Pain Stated Complaint: ABD PAIN Time Seen by Provider: 11/30/19 16:16 Source of Information: Reports: Patient - History of Present Illness INITIAL COMMENTS - FREE TEXT/NARRATIVE: Pt c/o Rt sided upper and lower abdominal pain since this morning, pain is steady, feels like pressure, non-radiating. States very similar to episodes she had back in July of this year where she required transfer admission to [facility]). 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 Denies: Fever, Malaise, Weakness HEENT: Reports: No Symptoms Respiratory: Reports: No Symptoms. Denies: Shortness of Breath, Wheezing, Pleuritic Chest Pain, Cough Cardiovascular: Denies: Chest Pain Endocrine: Reports: No Symptoms GI/Abdominal: Reports: Abdominal Pain, Nausea. Denies: Black Stool, Bloody Stool : Reports: No Symptoms Musculoskeletal: Reports: No Symptoms Skin: Reports: No Symptoms Neurological: Reports: No Symptoms Psychiatric: Reports: No Symptoms Hematologic/Lymphatic: Reports: No Symptoms ED EXAM, GI/ABD - Physical Exam Exam: See Below Exam Limited By: No Limitations General Appearance: Alert, WD/WN, Mild Distress Ears: Normal External Exam, Normal Canal, Hearing Grossly Normal Nose: Normal Inspection, Normal Mucosa Throat/Mouth: Normal Inspection, Normal Lips, Normal Teeth, Normal Gums, Normal Oropharynx, Normal Voice, No Airway Compromise Head: Atraumatic, Normocephalic Neck: Normal Inspection, Supple, Non-Tender Respiratory/Chest: No Respiratory Distress, Lungs Clear, Normal Breath Sounds Cardiovascular: Normal Peripheral Pulses, Regular Rate, Rhythm, No JVD, Other (Systolic murmur) GI/Abdominal Exam: Soft, No Distention, No Abnormal Bruit, No Mass, Guarding, Tender, Abnormal Bowel Sounds Back Exam: Normal Inspection Extremities: Normal Inspection, Normal Range of Motion Neurological: Alert, Oriented, CN II-XII Intact, Normal Cognition Psychiatric: Normal Affect, Normal Mood Skin Exam: Warm Course - Vital Signs Last Recorded V/S: Last Vital Signs Temp 97.7 F 11/30/19 16:15 Pulse 74 11/30/19 16:15 Resp 18 11/30/19 16:15 BP 133/67 11/30/19 16:15 Pulse Ox 100 11/30/19 16:15 - Orders/Labs/Meds Orders: Active Orders 24 hr Category Date Time Status Abdomen Pelvis wo Cont [CT] Stat Exams 11/30/19 16:36 Taken SEDIMENTATION RATE MANUAL [HEME] Stat Lab 11/30/19 16:38 Ordered Sodium Chloride 0.9% [Normal Saline] 1,000 ml Med 11/30/19 16:45 Active IV ASDIRECTED Medication Orders Sodium Chloride (Normal Saline) 1,000 mls @ 125 mls/hr IV ASDIRECTED [facility] Last Admin: 11/30/19 17:15 Dose: 125 mls/hr Documented by: MARCI Labs: Laboratory Tests 11/30/19 11/30/19 11/30/19 Range/Units 17:01 17:01 17:01 WBC 10.5 (4.0-11.0) K/uL RBC 4.87 (3.80-5.80) M/uL Hgb 15.0 (11.5-16.5) g/dL Hct 44.4 (37.0-47.0) % MCV 91 (76-96) fL MCH 30.8 (27.0-32.0) pg MCHC 33.8 (31.0-35.0) g/dL RDW 13.7 (11.0-16.0) % Plt Count 283 D (150-500) K/uL MPV 10.7 H (6.0-10.0) fL Neut % (Auto) 90.5 H (45.0-70.0) % Lymph % (Auto) 6.5 L (20.0-40.0) % [place] % (Auto) 2.9 L (3.0-10.0) % Eos % (Auto) 0.0 L (1.0-5.0) % Baso % (Auto) 0.1 (0.0-0.5) % Neut # (Auto) 9.46 H (2.00-7.50) K/uL Lymph # (Auto) 0.68 L (1.50-4.00) K/uL [place] # (Auto) 0.30 (0.20-0.80) K/uL Eos # (Auto) 0.00 L (0.04-0.40) K/uL Baso # (Auto) 0.01 L (0.02-0.10) K/uL Sodium 135 L (136-145) mmol/L Potassium 4.1 (3.5-5.1) mmol/L Chloride 101 (98-107) mmol/L Carbon Dioxide 23.8 (21.0-32.0) mmol/L Anion Gap 14.3 (5.0-15.0) mmol/L BUN 28 H D (8-26) mg/dL Creatinine 0.85 (0.55-1.02) mg/dL Est Cr Clr Drug Dosing 42.54 mL/min Estimated GFR (MDRD) > 60 (>60) MLS/MIN BUN/Creatinine Ratio 32.9 H (6-25) Glucose 138 H D (74-100) mg/dL Lactic Acid (0.4-2.0) mmol/L Calcium 8.8 (8.5-10.1) mg/dL Total Bilirubin 0.8 D (0.0-1.0) mg/dL AST 28 (15-37) U/L ALT 25 (12-78) U/L Alkaline Phosphatase 72 (46-116) U/L Total Protein 7.0 (6.4-8.2) g/dL Albumin 3.3 L (3.4-5.0) g/dL Globulin 3.7 (2.2-4.2) g/dL Albumin/Globulin Ratio 0.9 (0.8-2.0) Amylase 47 (25-115) U/L Lipase 74 (73-393) U/L Urine Color Yellow Urine Appearance Clear (CLEAR) Urine pH 5.5 (5.0-8.0) Ur Specific [place] >= 1.030 (1.003-1.030) Urine Protein 30 H (NEGATIVE) mg/dL Urine Glucose (UA) Negative (NEGATIVE) mg/dL Urine Ketones Trace H (NEGATIVE) mg/dL Urine Occult Blood Trace-lysed H (NEGATIVE) Urine Nitrite Negative (NEGATIVE) Urine Bilirubin Small H (NEGATIVE) Urine Urobilinogen 0.2 (0.2-1.0) E.U./dL Ur Leukocyte Esterase Negative (NEGATIVE) U Hyaline Cast (Auto) Few /HPF Urine RBC 5-10 H /HPF Urine WBC Not Reportable Ur Epithelial Cells Moderate /HPF Urine Bacteria Few /HPF Fine Granular Casts Few H /HPF 11/30/19 Range/Units 17:01 WBC (4.0-11.0) K/uL RBC (3.80-5.80) M/uL Hgb (11.5-16.5) g/dL Hct (37.0-47.0) % MCV (76-96) fL MCH (27.0-32.0) pg MCHC (31.0-35.0) g/dL RDW (11.0-16.0) % Plt Count (150-500) K/uL MPV (6.0-10.0) fL Neut % (Auto) (45.0-70.0) % Lymph % (Auto) (20.0-40.0) % [place] % (Auto) (3.0-10.0) % Eos % (Auto) (1.0-5.0) % Baso % (Auto) (0.0-0.5) % Neut # (Auto) (2.00-7.50) K/uL Lymph # (Auto) (1.50-4.00) K/uL [place] # (Auto) (0.20-0.80) K/uL Eos # (Auto) (0.04-0.40) K/uL Baso # (Auto) (0.02-0.10) K/uL Sodium (136-145) mmol/L Potassium (3.5-5.1) mmol/L Chloride (98-107) mmol/L Carbon Dioxide (21.0-32.0) mmol/L Anion Gap (5.0-15.0) mmol/L BUN (8-26) mg/dL Creatinine (0.55-1.02) mg/dL Est Cr Clr Drug Dosing mL/min Estimated GFR (MDRD) (>60) MLS/MIN BUN/Creatinine Ratio (6-25) Glucose (74-100) mg/dL Lactic Acid 1.6 (0.4-2.0) mmol/L Calcium (8.5-10.1) mg/dL Total Bilirubin (0.0-1.0) mg/dL AST (15-37) U/L ALT (12-78) U/L Alkaline Phosphatase (46-116) U/L Total Protein (6.4-8.2) g/dL Albumin (3.4-5.0) g/dL Globulin (2.2-4.2) g/dL Albumin/Globulin Ratio (0.8-2.0) Amylase (25-115) U/L Lipase (73-393) U/L Urine Color Urine Appearance (CLEAR) Urine pH (5.0-8.0) Ur Specific Randolph (1.003-1.030) Urine Protein (NEGATIVE) mg/dL Urine Glucose (UA) (NEGATIVE) mg/dL Urine Ketones (NEGATIVE) mg/dL Urine Occult Blood (NEGATIVE) Urine Nitrite (NEGATIVE) Urine Bilirubin (NEGATIVE) Urine Urobilinogen (0.2-1.0) E.U./dL Ur Leukocyte Esterase (NEGATIVE) U Hyaline Cast (Auto) /HPF Urine RBC /HPF Urine WBC Ur Epithelial Cells /HPF Urine Bacteria /HPF Fine Granular Casts /HPF Meds: Medications Generic Name Dose Route Start Last Admin Trade Name Berenice PRN Reason Stop Dose Admin Sodium Chloride 1,000 mls @ 125 mls/hr 11/30/19 16:45 11/30/19 17:15 Normal Saline IV 125 mls/hr ASDIRECTED SAV Administration Discontinued Medications Generic Name Dose Route Start Last Admin Trade Name Berenice PRN Reason Stop Dose Admin Morphine Sulfate 2 mg 11/30/19 16:41 11/30/19 17:21 Morphine IVPUSH 11/30/19 16:42 2 mg ONETIME ONE Administration Morphine Sulfate Confirm 11/30/19 17:30 Morphine Administered 11/30/19 17:31 Dose 2 mg .ROUTE .STK-MED ONE - Re-Assessments/Exams Free Text/Narrative Re-Assessment/Exam: 11/30/19 16:45 Pt seemed to be resting comfortably while on stretcher. Her CBC and Chem were unremarkable CT - Borderline dilated loops of small bowel Thickening of the small bowel wall in the RLQ less pronounced than on prior CT 08/15. Free Text/Narrative Re-Assessment/Exam: 11/30/19 17:48 Call is placed to [facility] for discussion and management. Departure - Departure Time of Disposition: 18:03 Disposition: Refer to Observation Condition: Fair Clinical Impression: Abdominal pain - Discharge Information *PRESCRIPTION DRUG MONITORING PROGRAM REVIEWED*: Not Applicable *COPY OF PRESCRIPTION DRUG MONITORING REPORT IN PATIENT ALINE: Not Applicable Referrals: PCP,None [Primary Care Provider] - Forms: ED Department Discharge, ED Return to Work/School Form Sepsis Event Note (ED) - Focused Exam Vital Signs: Vital Signs Temp Pulse Resp BP Pulse Ox 11/30/19 16:15 97.7 F 74 18 133/67 100 - My Orders Last 24 Hours: My Active Orders 11/30/19 16:36 Abdomen Pelvis wo Cont [CT] Stat 11/30/19 16:38 SEDIMENTATION RATE MANUAL [HEME] Stat 11/30/19 16:45 Sodium Chloride 0.9% [Normal Saline] 1,000 ml IV ASDIRECTED - Assessment/Plan Last 24 Hours: My Active Orders 11/30/19 16:36 Abdomen Pelvis wo Cont [CT] Stat 11/30/19 16:38 SEDIMENTATION RATE MANUAL [HEME] Stat 11/30/19 16:45 Sodium Chloride 0.9% [Normal Saline] 1,000 ml IV ASDIRECTED
[2019-11-30] MEDS ORDERED: Sodium Chloride 0.9% 1,000 ML IV SCH (16:45)
[2019-11-30] MEDS: Morphine 2 MG/ML SYRINGE IVPUSH ONE ×2 (17:13→17:21)
[2019-11-30] MEDS ORDERED: Morphine 2 MG/ML SYRINGE ONE (17:30)
[2019-11-30] MEDS ORDERED: Ondansetron 4 MG/2 ML SDV IV PRN (18:30)
[2019-11-30] MEDS: cefTRIAXone 1 GM in Sodium Chloride 0.9% 50 ML IV SCH (20:56)
[2019-11-30] MEDS: Morphine 2 MG/ML SYRINGE IVPUSH PRN (20:58)
[2019-11-30] MEDS: Metoprolol Tartrate 25 MG Tab PO SCH (21:04)
[2019-11-30] MEDS: Apixaban 5 MG Tab PO SCH (21:04)
--- NOTE | 2019-11-30 21:09 | PCM.SN.2 ---
- Free Text/Narrative Note: [facility] Hospitalist ADMISSION SUPPORT NOTE The [facility] Hospitalist was contacted by the ER provider, Dr. John Dunbar, with a request for admission support and cross coverage for this patient. Chief complaint: Right upper and right lower quadrant abdominal pain. HPI: 84-year-old female admitted with right lower and right upper quadrant abdominal pain. This has been increasing the last couple days. She has had similar pain back in July 2019 where she was diagnosed with enteritis and was treated at [facility] in [place]. Abdominal pain feels like pressure, nonradiating. No associated fever, chills. She has had some nausea but no emesis. She had 2 small bowel movements that were soft and not diarrhea and not bloody. She has had poor p.o. intake the last couple days. She has had a previous total hysterectomy. In the ED WBC 10.5, hemoglobin 15, hematocrit 44.4, platelets 283, sodium 135, potassium 4.1, chloride 101, CO2 23.8, anion gap 14.3, BUN 28, creatinine 0.85, glucose 138, calcium 8.8, total bilirubin 0.8, AST 28, ALT 25, alk phosphatase 72, total protein 7, albumin 3.3, amylase 47, lipase 74. Urinalysis clear, trace ketones, negative nitrate, negative leukocyte esterase, no WBCs, few bacteria. CT abdomen pelvis done that revealed borderline dilated loops of small bowel and thickening of the small bowel wall in the right lower quadrant less pronounced than on prior CT 08/15. HOME MEDICATIONS: Reviewed in the EMR. PMH: Hypertension, A. fib on Eliquis, hysterectomy with 1 ovary removed, rheumatic heart fever and heart murmur, right total hip arthroplasty revision, osteoarthritis. PERTINENT SOCIAL HISTORY: Refer to the admission H&P or the emergency room encounter note. Allergies penicillin rash, has had Rocephin before July 2019, oxycodone redness, hydrocodone itching. Tolerated Morphine in the ED. EXAM: Performed via interactive video with the assistance of the bedside nurse, Xu. VITAL SIGNS: Temp 97.7, heart rate 74, respiratory rate 18, BP 133/67, O2 sat 100% room air. GENERAL APPEARANCE: The patient is awake, alert, and well oriented. She is conversant and follows commands appropriately. She does not appear distressed. Her current abdominal pain level is 4/10 with movement. HEENT: Facial features are symmetric. Pupils equally round reactive to light. Mucous membranes are moist and pink. No cyanosis or jaundice is seen. The oropharynx is patent without exudates. NECK: Supple. There is no JVD. Thyroid gland is small and symmetric. CHEST: Normal respiratory motion seen. LUNGS: The breath sounds are symmetric. Breath sounds are heard in all lung nation, bilaterally. Rales and wheezes are not heard. HEART: Regular rhythm and rate. No murmurs, gallops, or rubs are heard. Pulses are present in 4 extremities ABDOMEN: Flat. Bowel sounds are present in 4 quadrants. Soft. There is mild tenderness in the epigastrium without rebound rigidity. EXTREMITIES: There is no edema. No cellulitis is seen. Pulses are present and symmetric. SKIN: Normal color, temperature, and texture. No rashes are seen. NEUROLOGICAL: Alert and oriented x4. Cranial nerves II through XII are functioning normally. No tremors or myoclonus are seen. Normal volitional movement is seen in all 4 extremities. PERTINENT LAB DATA AND IMAGING REPORTS: Available data/reports reviewed in the EMR. Assessment and plan: 1. 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 No current acute abdomen. We will monitor closely with admission. IV fluids, IV antibiotics with Rocephin and Flagyl, PRN morphine, urine antiemetic with Zofran. Ischemic bowel is in the differential, but patient is taking Eliquis. I have ordered a CK and the lactic acid. Early ileus versus early small bowel obstruction, however patient did have 2 small bowel movements that were soft in nature today and no diarrhea and and nonbloody. Hemoglobin was 15. Hypertension: She is on metoprolol and lisinopril, A. fib rate controlled continuing Eliquis. 2. The [facility] hospitalist will provide admission support by performing a video assisted exam of the patient, with the assistance of the patient's RN (as documented above). 3. The [facility] hospitalist will review the admission orders, and modify these orders or initiate additional orders to benefit the initial inpatient care of the patient. 4. We will invite the patient's RN to recommend additional diagnostic and therapeutic steps which may benefit the patient's admission. 5. [facility] provide cross coverage care services to assist in the daily care of the patient, and to assist when the patient develops an acute status change. 6. DVT prevention steps for a prolonged hospitalization, or for multiple risk factors for venothromboembolism. [facility] you for [facility]. This service is available for further assistance as requested by your care team by calling [phone]. MD [facility].
[2019-11-30] MEDS ORDERED: metroNIDAZOLE/Normal Saline 100 ML ONE (21:46)
[2019-11-30] MEDS: metroNIDAZOLE/Normal Saline 500 MG in Premix Bag 1 BAG IV SCH (21:49)
[2019-11-30] MEDS: Acetaminophen 325 MG Tab PO PRN (21:56)
[2019-12-01] MEDS: Morphine 2 MG/ML SYRINGE IVPUSH PRN ×6 (02:26→18:33)
[2019-12-01] MEDS: Sodium Chloride 0.9% 10 ML Syringe FLUSH PRN ×5 (02:28→14:39)
[2019-12-01] MEDS ORDERED: metroNIDAZOLE/Normal Saline 100 ML ONE (03:57)
[2019-12-01] MEDS: Acetaminophen 325 MG Tab PO PRN ×2 (04:10→15:39)
[2019-12-01] MEDS: metroNIDAZOLE/Normal Saline 500 MG in Premix Bag 1 BAG IV SCH (04:10)
--- NOTE | 2019-12-01 08:03 | PCM.PN ---
- General Info Date of Service: 12/01/19 Functional Status: Reports: Pain Controlled - Review of Systems General: Reports: Fever HEENT: Reports: No Symptoms Pulmonary: Reports: No Symptoms Cardiovascular: Reports: No Symptoms Gastrointestinal: Reports: Abdominal Pain. Denies: Difficulty Swallowing Musculoskeletal: Reports: No Symptoms Skin: Reports: No Symptoms Neurological: Reports: No Symptoms - Patient Data Vitals - Most Recent: Last Vital Signs Temp 99.6 F 12/01/19 04:00 Pulse 62 12/01/19 04:00 Resp 18 12/01/19 04:00 BP 172/66 H 12/01/19 04:00 Pulse Ox 96 12/01/19 04:00 Weight - Most Recent: 145 lb I&O - Last 24 Hours: Intake & Output 11/30/19 12/01/19 12/01/19 22:59 06:59 14:59 Intake Total 400 Balance 400 Lab Results Last 24 Hours: Laboratory Results - last 24 hr 11/30/19 11/30/19 11/30/19 Range/Units 17:01 17:01 17:01 WBC 10.5 (4.0-11.0) K/uL RBC 4.87 (3.80-5.80) M/uL Hgb 15.0 (11.5-16.5) g/dL Hct 44.4 (37.0-47.0) % MCV 91 (76-96) fL MCH 30.8 (27.0-32.0) pg MCHC 33.8 (31.0-35.0) g/dL RDW 13.7 (11.0-16.0) % Plt Count 283 D (150-500) K/uL MPV 10.7 H (6.0-10.0) fL Neut % (Auto) 90.5 H (45.0-70.0) % Lymph % (Auto) 6.5 L (20.0-40.0) % [place] % (Auto) 2.9 L (3.0-10.0) % Eos % (Auto) 0.0 L (1.0-5.0) % Baso % (Auto) 0.1 (0.0-0.5) % Neut # (Auto) 9.46 H (2.00-7.50) K/uL Lymph # (Auto) 0.68 L (1.50-4.00) K/uL [place] # (Auto) 0.30 (0.20-0.80) K/uL Eos # (Auto) 0.00 L (0.04-0.40) K/uL Baso # (Auto) 0.01 L (0.02-0.10) K/uL ESR (0-30) mm/hr Sodium 135 L (136-145) mmol/L Potassium 4.1 (3.5-5.1) mmol/L Chloride 101 (98-107) mmol/L Carbon Dioxide 23.8 (21.0-32.0) mmol/L Anion Gap 14.3 (5.0-15.0) mmol/L BUN 28 H D (8-26) mg/dL Creatinine 0.85 (0.55-1.02) mg/dL Est Cr Clr Drug Dosing 42.54 mL/min Estimated GFR (MDRD) > 60 (>60) MLS/MIN BUN/Creatinine Ratio 32.9 H (6-25) Glucose 138 H D (74-100) mg/dL Lactic Acid (0.4-2.0) mmol/L Calcium 8.8 (8.5-10.1) mg/dL Total Bilirubin 0.8 D (0.0-1.0) mg/dL AST 28 (15-37) U/L ALT 25 (12-78) U/L Alkaline Phosphatase 72 (46-116) U/L Creatine Kinase (21-232) U/L Total Protein 7.0 (6.4-8.2) g/dL Albumin 3.3 L (3.4-5.0) g/dL Globulin 3.7 (2.2-4.2) g/dL Albumin/Globulin Ratio 0.9 (0.8-2.0) Amylase 47 (25-115) U/L Lipase 74 (73-393) U/L Urine Color Yellow Urine Appearance Clear (CLEAR) Urine pH 5.5 (5.0-8.0) Ur Specific [place] >= 1.030 (1.003-1.030) Urine Protein 30 H (NEGATIVE) mg/dL Urine Glucose (UA) Negative (NEGATIVE) mg/dL Urine Ketones Trace H (NEGATIVE) mg/dL Urine Occult Blood Trace-lysed H (NEGATIVE) Urine Nitrite Negative (NEGATIVE) Urine Bilirubin Small H (NEGATIVE) Urine Urobilinogen 0.2 (0.2-1.0) E.U./dL Ur Leukocyte Esterase Negative (NEGATIVE) U Hyaline Cast (Auto) Few /HPF Urine RBC 5-10 H /HPF Urine WBC Not Reportable Ur Epithelial Cells Moderate /HPF Urine Bacteria Few /HPF Fine Granular Casts Few H /HPF 11/30/19 11/30/19 12/01/19 Range/Units 17:01 17:01 07:00 WBC (4.0-11.0) K/uL RBC (3.80-5.80) M/uL Hgb (11.5-16.5) g/dL Hct (37.0-47.0) % MCV (76-96) fL MCH (27.0-32.0) pg MCHC (31.0-35.0) g/dL RDW (11.0-16.0) % Plt Count (150-500) K/uL MPV (6.0-10.0) fL Neut % (Auto) (45.0-70.0) % Lymph % (Auto) (20.0-40.0) % [place] % (Auto) (3.0-10.0) % Eos % (Auto) (1.0-5.0) % Baso % (Auto) (0.0-0.5) % Neut # (Auto) (2.00-7.50) K/uL Lymph # (Auto) (1.50-4.00) K/uL [place] # (Auto) (0.20-0.80) K/uL Eos # (Auto) (0.04-0.40) K/uL Baso # (Auto) (0.02-0.10) K/uL ESR 9 (0-30) mm/hr Sodium (136-145) mmol/L Potassium (3.5-5.1) mmol/L Chloride (98-107) mmol/L Carbon Dioxide (21.0-32.0) mmol/L Anion Gap (5.0-15.0) mmol/L BUN (8-26) mg/dL Creatinine (0.55-1.02) mg/dL Est Cr Clr Drug Dosing mL/min Estimated GFR (MDRD) (>60) MLS/MIN BUN/Creatinine Ratio (6-25) Glucose (74-100) mg/dL Lactic Acid 1.6 0.8 (0.4-2.0) mmol/L Calcium (8.5-10.1) mg/dL Total Bilirubin (0.0-1.0) mg/dL AST (15-37) U/L ALT (12-78) U/L Alkaline Phosphatase (46-116) U/L Creatine Kinase (21-232) U/L Total Protein (6.4-8.2) g/dL Albumin (3.4-5.0) g/dL Globulin (2.2-4.2) g/dL Albumin/Globulin Ratio (0.8-2.0) Amylase (25-115) U/L Lipase (73-393) U/L Urine Color Urine Appearance (CLEAR) Urine pH (5.0-8.0) Ur Specific [place] (1.003-1.030) Urine Protein (NEGATIVE) mg/dL Urine Glucose (UA) (NEGATIVE) mg/dL Urine Ketones (NEGATIVE) mg/dL Urine Occult Blood (NEGATIVE) Urine Nitrite (NEGATIVE) Urine Bilirubin (NEGATIVE) Urine Urobilinogen (0.2-1.0) E.U./dL Ur Leukocyte Esterase (NEGATIVE) U Hyaline Cast (Auto) /HPF Urine RBC /HPF Urine WBC Ur Epithelial Cells /HPF Urine Bacteria /HPF Fine Granular Casts /HPF 12/01/19 12/01/19 12/01/19 Range/Units 07:00 07:00 07:00 WBC 10.3 (4.0-11.0) K/uL RBC 4.23 (3.80-5.80) M/uL Hgb 13.2 (11.5-16.5) g/dL Hct 38.9 (37.0-47.0) % MCV 92 (76-96) fL MCH 31.2 (27.0-32.0) pg MCHC 33.9 (31.0-35.0) g/dL RDW 14.0 (11.0-16.0) % Plt Count 240 (150-500) K/uL MPV 11.2 H (6.0-10.0) fL Neut % (Auto) (45.0-70.0) % Lymph % (Auto) (20.0-40.0) % [place] % (Auto) (3.0-10.0) % Eos % (Auto) (1.0-5.0) % Baso % (Auto) (0.0-0.5) % Neut # (Auto) (2.00-7.50) K/uL Lymph # (Auto) (1.50-4.00) K/uL [place] # (Auto) (0.20-0.80) K/uL Eos # (Auto) (0.04-0.40) K/uL Baso # (Auto) (0.02-0.10) K/uL ESR (0-30) mm/hr Sodium 137 (136-145) mmol/L Potassium 4.2 (3.5-5.1) mmol/L Chloride 104 (98-107) mmol/L Carbon Dioxide 24.7 (21.0-32.0) mmol/L Anion Gap 12.5 (5.0-15.0) mmol/L BUN 25 (8-26) mg/dL Creatinine 0.93 (0.55-1.02) mg/dL Est Cr Clr Drug Dosing 38.88 mL/min Estimated GFR (MDRD) 57 L (>60) MLS/MIN BUN/Creatinine Ratio 26.9 H (6-25) Glucose 115 H (74-100) mg/dL Lactic Acid (0.4-2.0) mmol/L Calcium 8.2 L (8.5-10.1) mg/dL Total Bilirubin 0.8 (0.0-1.0) mg/dL AST 19 (15-37) U/L ALT 18 (12-78) U/L Alkaline Phosphatase 54 (46-116) U/L Creatine Kinase 40 (21-232) U/L Total Protein 6.0 L (6.4-8.2) g/dL Albumin 2.5 L (3.4-5.0) g/dL Globulin 3.5 (2.2-4.2) g/dL Albumin/Globulin Ratio 0.7 L (0.8-2.0) Amylase (25-115) U/L Lipase (73-393) U/L Urine Color Urine Appearance (CLEAR) Urine pH (5.0-8.0) Ur Specific [place] (1.003-1.030) Urine Protein (NEGATIVE) mg/dL Urine Glucose (UA) (NEGATIVE) mg/dL Urine Ketones (NEGATIVE) mg/dL Urine Occult Blood (NEGATIVE) Urine Nitrite (NEGATIVE) Urine Bilirubin (NEGATIVE) Urine Urobilinogen (0.2-1.0) E.U./dL Ur Leukocyte Esterase (NEGATIVE) U Hyaline Cast (Auto) /HPF Urine RBC /HPF Urine WBC Ur Epithelial Cells /HPF Urine Bacteria /HPF Fine Granular Casts /HPF Med Orders - Current: Current Medications Acetaminophen (Tylenol) 650 mg PO Q4H PRN PRN Reason: Pain (Mild 1-3)/fever Last Admin: 12/01/19 04:10 Dose: 650 mg Documented by: Apixaban (Eliquis) 5 mg PO BID [facility] Last Admin: 11/30/19 21:04 Dose: 5 mg Documented by: Ceftriaxone Sodium 1 gm/ (Sodium Chloride) 50 mls @ 100 mls/hr IV Q24H [facility] Last Admin: 11/30/19 20:56 Dose: 100 mls/hr Documented by: Metronidazole 500 mg/ Premix 100 mls @ 100 mls/hr IV Q8H [facility] Last Admin: 12/01/19 04:10 Dose: 100 mls/hr Documented by: Lisinopril (Prinivil) 5 mg PO DAILY [facility] Metoprolol Tartrate (Lopressor) 25 mg PO BID [facility] Last Admin: 11/30/19 21:04 Dose: 25 mg Documented by: Morphine Sulfate (Morphine) 2 mg IVPUSH Q2H PRN PRN Reason: Pain (severe 7-10) Last Admin: 12/01/19 06:31 Dose: 2 mg Documented by: Ondansetron HCl (Zofran) 4 mg IV Q4H PRN PRN Reason: Nausea/Vomiting Sodium Chloride (Saline Flush) 10 ml FLUSH ASDIRECTED PRN PRN Reason: IV Use Last Admin: 12/01/19 06:32 Dose: 10 ml Documented by: Discontinued Medications Sodium Chloride (Normal Saline) 1,000 mls @ 75 mls/hr IV ASDIRECTED [facility] Stop: 12/01/19 05:00 Last Admin: 11/30/19 17:15 Dose: 125 mls/hr Documented by: Metronidazole (Flagyl 500 Mg In Ns 100 Ml) Confirm Administered Dose 100 mls @ as directed .ROUTE .[facility] ONE Stop: 11/30/19 21:47 Last Admin: 11/30/19 21:57 Dose: Not Given Documented by: Metronidazole (Flagyl 500 Mg In Ns 100 Ml) Confirm Administered Dose 100 mls @ as directed .ROUTE .[facility]-MED ONE Stop: 12/01/19 03:58 Last Admin: 12/01/19 04:12 Dose: Not Given Documented by: Morphine Sulfate (Morphine) 2 mg IVPUSH ONETIME ONE Stop: 11/30/19 16:42 Last Admin: 11/30/19 17:21 Dose: 2 mg Documented by: Morphine Sulfate (Morphine) Confirm Administered Dose 2 mg .ROUTE .[facility]-MED ONE Stop: 11/30/19 17:31 Last Admin: 11/30/19 17:41 Dose: Not Given Documented by: - Exam General: Alert, Oriented, Cooperative, No Acute Distress HEENT: Pupils Equal Neck: Supple Lungs: Clear to Auscultation Cardiovascular: Regular Rate GI/Abdominal Exam: Tender, Abnormal Bowel Sounds. No: Rigid, Rebound Skin: Warm Psy/Mental Status: Alert, Normal Affect, Normal Mood Sepsis Event Note - Evaluation Sepsis Screening Result: No Definite Risk - Focused Exam Vital Signs: Vital Signs Temp Pulse Pulse Resp BP BP Pulse Ox 12/01/19 04:00 99.6 F 62 18 172/66 H 96 12/01/19 00:00 99.1 F 57 L 18 134/50 L 94 L 11/30/19 21:04 87 149/64 H - Problem List Review Problem List Initiated/Reviewed/Updated: Yes - My Orders Last 24 Hours: My Active Orders 11/30/19 16:36 Abdomen Pelvis wo Cont [CT] Stat 11/30/19 17:51 Resuscitation Status Stat 11/30/19 18:33 Admission Status [Patient Status] [ADT] Routine 12/01/19 02:23 Sodium Chloride 0.9% [Saline Flush] 10 ml FLUSH ASDIRECTED PRN 12/01/19 06:04 CULTURE MRSA SURVEY [RM] Routine
[2019-12-01] MEDS: Apixaban 5 MG Tab PO SCH ×2 (08:22→21:07)
[2019-12-01] MEDS: Metoprolol Tartrate 25 MG Tab PO SCH ×2 (08:22→21:10)
[2019-12-01] MEDS: Lisinopril 5 MG Tab PO SCH (08:22)
--- NOTE | 2019-12-01 09:18 | CT ---
DATE OF SERVICE: 11/30/19 CLINICAL DATA: abdominal pain - similar to May UNENHANCED ABDOMEN AND PELVIC CT: Multislice acquisition through the abdomen and pelvis without IV or oral contrast was performed. Comparison is made to a prior unenhanced abdomen and pelvic CT dated 08/25/19. There is a densely calcified nodule in the left lung base consistent with prior granulomatous disease. The lung bases are otherwise clear. The heart size is normal. No significant pericardial effusion. The unenhanced liver appears normal. No focal hepatic lesions. The gallbladder is moderately distended. No calcified gallstones. No pericholecystic fluid. The spleen appears normal. The pancreas appears normal. The right and left adrenals appear normal. The right and left kidneys appear normal. No nephrocalcinosis or nephrolithiasis. No hydronephrosis or hydroureter. The patient is status post bilateral total hip arthroplasty. This does produce significant beam-hardening and streak artifact obscuring adjacent structures. The bladder is not adequately seen. No evidence of appendicitis. There are multiple fluid and gas-filled distended loops of small bowel within the mid and upper abdomen. They do contain air-fluid levels. A couple of these are mildly distended. They are, however, less distended and less numerous than on the prior CT. There are multiple loops of small bowel within the right lower quadrant and right pelvis with mild mural thickening. Enteritis should be considered. No free air. There is a small amount of free fluid in the pelvis. No adenopathy. No aortic aneurysm. The uterus is not adequately seen. The exam is otherwise unchanged from the prior. [id number] MTDD
--- NOTE | 2019-12-01 11:10 | PCM.PN ---
- General Info Date of Service: 12/01/19 Subjective Update: Patient notes mild improvement of the abdominal discomfort and feels it is about the same as the last time she had Enteritis. She denies any fever or chills. No chest pain or shortness of breath. Functional Status: Reports: Pain Controlled, Tolerating Diet (liquid diet and advance only as tolerated) - Review of Systems General: Reports: No Symptoms HEENT: Reports: No Symptoms Pulmonary: Reports: No Symptoms Cardiovascular: Reports: No Symptoms Gastrointestinal: Reports: Abdominal Pain Genitourinary: Reports: No Symptoms Musculoskeletal: Reports: No Symptoms Skin: Reports: No Symptoms Neurological: Reports: No Symptoms Psychiatric: Reports: No Symptoms - Patient Data Vitals - Most Recent: Last Vital Signs Temp 36.7 C 12/01/19 08:00 Pulse 65 12/01/19 08:22 Resp 20 12/01/19 08:00 BP 156/70 H 12/01/19 08:22 Pulse Ox 95 12/01/19 08:00 Weight - Most Recent: 65.771 kg I&O - Last 24 Hours: Intake & Output 11/30/19 12/01/19 12/01/19 22:59 06:59 14:59 Intake Total 400 Balance 400 Lab Results Last 24 Hours: Laboratory Results - last 24 hr 11/30/19 11/30/19 11/30/19 Range/Units 17:01 17:01 17:01 WBC 10.5 (4.0-11.0) K/uL RBC 4.87 (3.80-5.80) M/uL Hgb 15.0 (11.5-16.5) g/dL Hct 44.4 (37.0-47.0) % MCV 91 (76-96) fL MCH 30.8 (27.0-32.0) pg MCHC 33.8 (31.0-35.0) g/dL RDW 13.7 (11.0-16.0) % Plt Count 283 D (150-500) K/uL MPV 10.7 H (6.0-10.0) fL Neut % (Auto) 90.5 H (45.0-70.0) % Lymph % (Auto) 6.5 L (20.0-40.0) % [place] % (Auto) 2.9 L (3.0-10.0) % Eos % (Auto) 0.0 L (1.0-5.0) % Baso % (Auto) 0.1 (0.0-0.5) % Neut # (Auto) 9.46 H (2.00-7.50) K/uL Lymph # (Auto) 0.68 L (1.50-4.00) K/uL [place] # (Auto) 0.30 (0.20-0.80) K/uL Eos # (Auto) 0.00 L (0.04-0.40) K/uL Baso # (Auto) 0.01 L (0.02-0.10) K/uL ESR (0-30) mm/hr Sodium 135 L (136-145) mmol/L Potassium 4.1 (3.5-5.1) mmol/L Chloride 101 (98-107) mmol/L Carbon Dioxide 23.8 (21.0-32.0) mmol/L Anion Gap 14.3 (5.0-15.0) mmol/L BUN 28 H D (8-26) mg/dL Creatinine 0.85 (0.55-1.02) mg/dL Est Cr Clr Drug Dosing 42.54 mL/min Estimated GFR (MDRD) > 60 (>60) MLS/MIN BUN/Creatinine Ratio 32.9 H (6-25) Glucose 138 H D (74-100) mg/dL Lactic Acid (0.4-2.0) mmol/L Calcium 8.8 (8.5-10.1) mg/dL Total Bilirubin 0.8 D (0.0-1.0) mg/dL AST 28 (15-37) U/L ALT 25 (12-78) U/L Alkaline Phosphatase 72 (46-116) U/L Creatine Kinase (21-232) U/L Total Protein 7.0 (6.4-8.2) g/dL Albumin 3.3 L (3.4-5.0) g/dL Globulin 3.7 (2.2-4.2) g/dL Albumin/Globulin Ratio 0.9 (0.8-2.0) Amylase 47 (25-115) U/L Lipase 74 (73-393) U/L Urine Color Yellow Urine Appearance Clear (CLEAR) Urine pH 5.5 (5.0-8.0) Ur Specific [place] >= 1.030 (1.003-1.030) Urine Protein 30 H (NEGATIVE) mg/dL Urine Glucose (UA) Negative (NEGATIVE) mg/dL Urine Ketones Trace H (NEGATIVE) mg/dL Urine Occult Blood Trace-lysed H (NEGATIVE) Urine Nitrite Negative (NEGATIVE) Urine Bilirubin Small H (NEGATIVE) Urine Urobilinogen 0.2 (0.2-1.0) E.U./dL Ur Leukocyte Esterase Negative (NEGATIVE) U Hyaline Cast (Auto) Few /HPF Urine RBC 5-10 H /HPF Urine WBC Not Reportable Ur Epithelial Cells Moderate /HPF Urine Bacteria Few /HPF Fine Granular Casts Few H /HPF 11/30/19 11/30/19 12/01/19 Range/Units 17:01 17:01 07:00 WBC (4.0-11.0) K/uL RBC (3.80-5.80) M/uL Hgb (11.5-16.5) g/dL Hct (37.0-47.0) % MCV (76-96) fL MCH (27.0-32.0) pg MCHC (31.0-35.0) g/dL RDW (11.0-16.0) % Plt Count (150-500) K/uL MPV (6.0-10.0) fL Neut % (Auto) (45.0-70.0) % Lymph % (Auto) (20.0-40.0) % [place] % (Auto) (3.0-10.0) % Eos % (Auto) (1.0-5.0) % Baso % (Auto) (0.0-0.5) % Neut # (Auto) (2.00-7.50) K/uL Lymph # (Auto) (1.50-4.00) K/uL [place] # (Auto) (0.20-0.80) K/uL Eos # (Auto) (0.04-0.40) K/uL Baso # (Auto) (0.02-0.10) K/uL ESR 9 (0-30) mm/hr Sodium (136-145) mmol/L Potassium (3.5-5.1) mmol/L Chloride (98-107) mmol/L Carbon Dioxide (21.0-32.0) mmol/L Anion Gap (5.0-15.0) mmol/L BUN (8-26) mg/dL Creatinine (0.55-1.02) mg/dL Est Cr Clr Drug Dosing mL/min Estimated GFR (MDRD) (>60) MLS/MIN BUN/Creatinine Ratio (6-25) Glucose (74-100) mg/dL Lactic Acid 1.6 0.8 (0.4-2.0) mmol/L Calcium (8.5-10.1) mg/dL Total Bilirubin (0.0-1.0) mg/dL AST (15-37) U/L ALT (12-78) U/L Alkaline Phosphatase (46-116) U/L Creatine Kinase (21-232) U/L Total Protein (6.4-8.2) g/dL Albumin (3.4-5.0) g/dL Globulin (2.2-4.2) g/dL Albumin/Globulin Ratio (0.8-2.0) Amylase (25-115) U/L Lipase (73-393) U/L Urine Color Urine Appearance (CLEAR) Urine pH (5.0-8.0) Ur Specific [place] (1.003-1.030) Urine Protein (NEGATIVE) mg/dL Urine Glucose (UA) (NEGATIVE) mg/dL Urine Ketones (NEGATIVE) mg/dL Urine Occult Blood (NEGATIVE) Urine Nitrite (NEGATIVE) Urine Bilirubin (NEGATIVE) Urine Urobilinogen (0.2-1.0) E.U./dL Ur Leukocyte Esterase (NEGATIVE) U Hyaline Cast (Auto) /HPF Urine RBC /HPF Urine WBC Ur Epithelial Cells /HPF Urine Bacteria /HPF Fine Granular Casts /HPF 12/01/19 12/01/19 12/01/19 Range/Units 07:00 07:00 07:00 WBC 10.3 (4.0-11.0) K/uL RBC 4.23 (3.80-5.80) M/uL Hgb 13.2 (11.5-16.5) g/dL Hct 38.9 (37.0-47.0) % MCV 92 (76-96) fL MCH 31.2 (27.0-32.0) pg MCHC 33.9 (31.0-35.0) g/dL RDW 14.0 (11.0-16.0) % Plt Count 240 (150-500) K/uL MPV 11.2 H (6.0-10.0) fL Neut % (Auto) (45.0-70.0) % Lymph % (Auto) (20.0-40.0) % [place] % (Auto) (3.0-10.0) % Eos % (Auto) (1.0-5.0) % Baso % (Auto) (0.0-0.5) % Neut # (Auto) (2.00-7.50) K/uL Lymph # (Auto) (1.50-4.00) K/uL [place] # (Auto) (0.20-0.80) K/uL Eos # (Auto) (0.04-0.40) K/uL Baso # (Auto) (0.02-0.10) K/uL ESR (0-30) mm/hr Sodium 137 (136-145) mmol/L Potassium 4.2 (3.5-5.1) mmol/L Chloride 104 (98-107) mmol/L Carbon Dioxide 24.7 (21.0-32.0) mmol/L Anion Gap 12.5 (5.0-15.0) mmol/L BUN 25 (8-26) mg/dL Creatinine 0.93 (0.55-1.02) mg/dL Est Cr Clr Drug Dosing 38.88 mL/min Estimated GFR (MDRD) 57 L (>60) MLS/MIN BUN/Creatinine Ratio 26.9 H (6-25) Glucose 115 H (74-100) mg/dL Lactic Acid (0.4-2.0) mmol/L Calcium 8.2 L (8.5-10.1) mg/dL Total Bilirubin 0.8 (0.0-1.0) mg/dL AST 19 (15-37) U/L ALT 18 (12-78) U/L Alkaline Phosphatase 54 (46-116) U/L Creatine Kinase 40 (21-232) U/L Total Protein 6.0 L (6.4-8.2) g/dL Albumin 2.5 L (3.4-5.0) g/dL Globulin 3.5 (2.2-4.2) g/dL Albumin/Globulin Ratio 0.7 L (0.8-2.0) Amylase (25-115) U/L Lipase (73-393) U/L Urine Color Urine Appearance (CLEAR) Urine pH (5.0-8.0) Ur Specific [place] (1.003-1.030) Urine Protein (NEGATIVE) mg/dL Urine Glucose (UA) (NEGATIVE) mg/dL Urine Ketones (NEGATIVE) mg/dL Urine Occult Blood (NEGATIVE) Urine Nitrite (NEGATIVE) Urine Bilirubin (NEGATIVE) Urine Urobilinogen (0.2-1.0) E.U./dL Ur Leukocyte Esterase (NEGATIVE) U Hyaline Cast (Auto) /HPF Urine RBC /HPF Urine WBC Ur Epithelial Cells /HPF Urine Bacteria /HPF Fine Granular Casts /HPF Med Orders - Current: Current Medications Acetaminophen (Tylenol) 650 mg PO Q4H PRN PRN Reason: Pain (Mild 1-3)/fever Last Admin: 12/01/19 04:10 Dose: 650 mg Documented by: Apixaban (Eliquis) 5 mg PO BID [facility] Last Admin: 12/01/19 08:22 Dose: 5 mg Documented by: Ceftriaxone Sodium 1 gm/ (Sodium Chloride) 50 mls @ 100 mls/hr IV Q24H [facility] Last Admin: 11/30/19 20:56 Dose: 100 mls/hr Documented by: Metronidazole (Flagyl 500 Mg In Ns 100 Ml) 100 mls @ 200 mls/hr IV Q8H [facility] Lisinopril (Prinivil) 5 mg PO DAILY [facility] Last Admin: 12/01/19 08:22 Dose: 5 mg Documented by: Metoprolol Tartrate (Lopressor) 25 mg PO BID [facility] Last Admin: 12/01/19 08:22 Dose: 25 mg Documented by: Morphine Sulfate (Morphine) 2 mg IVPUSH Q2H PRN PRN Reason: Pain (severe 7-10) Last Admin: 12/01/19 09:20 Dose: 2 mg Documented by: Ondansetron HCl (Zofran) 4 mg IV Q4H PRN PRN Reason: Nausea/Vomiting Sodium Chloride (Saline Flush) 10 ml FLUSH ASDIRECTED PRN PRN Reason: IV Use Last Admin: 12/01/19 06:32 Dose: 10 ml Documented by: Discontinued Medications Sodium Chloride (Normal Saline) 1,000 mls @ 75 mls/hr IV ASDIRECTED [facility] Stop: 12/01/19 05:00 Last Admin: 11/30/19 17:15 Dose: 125 mls/hr Documented by: Metronidazole 500 mg/ Premix 100 mls @ 100 mls/hr IV Q8H [facility] Last Admin: 12/01/19 04:10 Dose: 100 mls/hr Documented by: Metronidazole (Flagyl 500 Mg In Ns 100 Ml) Confirm Administered Dose 100 mls @ as directed .ROUTE .STK-MED ONE Stop: 11/30/19 21:47 Last Admin: 11/30/19 21:57 Dose: Not Given Documented by: Metronidazole (Flagyl 500 Mg In Ns 100 Ml) Confirm Administered Dose 100 mls @ as directed .ROUTE .STK-MED ONE Stop: 12/01/19 03:58 Last Admin: 12/01/19 04:12 Dose: Not Given Documented by: Morphine Sulfate (Morphine) 2 mg IVPUSH ONETIME ONE Stop: 11/30/19 16:42 Last Admin: 11/30/19 17:21 Dose: 2 mg Documented by: Morphine Sulfate (Morphine) Confirm Administered Dose 2 mg .ROUTE .STK-MED ONE Stop: 11/30/19 17:31 Last Admin: 11/30/19 17:41 Dose: Not Given Documented by: - Exam General: Alert, Oriented, Cooperative HEENT: Pupils Equal, Pupils Reactive, EOMI Neck: Supple Lungs: Clear to Auscultation, Normal Respiratory Effort Cardiovascular: Regular Rate, Regular Rhythm GI/Abdominal Exam: Tender (decreased BS), Abnormal Bowel Sounds Extremities: Normal Inspection Neurological: No New Focal Deficit Psy/Mental Status: Alert, Normal Affect, Normal Mood Sepsis Event Note - Evaluation Sepsis Screening Result: No Definite Risk - Focused Exam Vital Signs: Vital Signs Temp Pulse Pulse Resp BP BP Pulse Ox 12/01/19 08:22 65 156/70 H 12/01/19 08:00 36.7 C 65 20 156/70 H 95 12/01/19 04:00 37.6 C 62 18 172/66 H 96 12/01/19 00:00 37.3 C 57 L 18 134/50 L 94 L - Problem List & Annotations (1) Enteritis SNOMED Code(s): 96819170 Code(s): K52.9 - NONINFECTIVE GASTROENTERITIS AND COLITIS, UNSPECIFIED Status: Acute Priority: High Current Visit: Yes (2) Abdominal pain SNOMED Code(s): 15924807 Code(s): R10.9 - UNSPECIFIED ABDOMINAL PAIN Status: Acute Current Visit: Yes (3) Acute abdomen SNOMED Code(s): 6761473 Code(s): R10.0 - ACUTE ABDOMEN Status: Acute Priority: High Current Visit: No (4) Hypertension SNOMED Code(s): 61366886 Code(s): I10 - ESSENTIAL (PRIMARY) HYPERTENSION Status: Acute Current Visit: No Qualifiers: Hypertension type: essential hypertension Qualified Code(s): I10 - Essential (primary) hypertension Annotation/Comment:: 01/07/2015 With elevated BP would like to start her on lisinopril and reviewed side effects with her and she is agreeable. - Problem List Review Problem List Initiated/Reviewed/Updated: Yes - My Orders Last 24 Hours: My Active Orders 12/02/19 05:11 CBC WITH AUTO DIFF [HEME] AM COMPREHENSIVE METABOLIC PN,CMP [CHEM] AM - Plan Plan:: Enteritis - Continue on current antibiotics treatment and plan. Patient has decreased appetite and we will continue to advance only as tolerated. F/u am labs and evaluation/exam for further plan.
[2019-12-01] MEDS: metroNIDAZOLE/Normal Saline 100 ML IV SCH ×2 (11:52→21:08)
[2019-12-01] MEDS: cefTRIAXone 1 GM in Sodium Chloride 0.9% 50 ML IV SCH (21:08)
[2019-12-02] MEDS: metroNIDAZOLE/Normal Saline 100 ML IV SCH ×3 (03:41→20:52)
[2019-12-02] MEDS: Lisinopril 5 MG Tab PO SCH (08:50)
[2019-12-02] MEDS: Apixaban 5 MG Tab PO SCH ×2 (08:53→20:50)
[2019-12-02] MEDS: Metoprolol Tartrate 25 MG Tab PO SCH ×2 (08:53→20:50)
--- NOTE | 2019-12-02 10:28 | PCM.PN ---
- General Info Date of Service: 12/02/19 Admission Dx/Problem (Free Text): abdominal pain, ileitis Subjective Update: Patient notes mild improvement of the abdominal discomfort and feels it is about the same as the last time she had Enteritis. She denies any fever or chills. No chest pain or shortness of breath. Functional Status: Reports: Pain Controlled - Review of Systems General: Reports: No Symptoms. Denies: Fever, Malaise HEENT: Reports: No Symptoms Pulmonary: Reports: No Symptoms. Denies: Shortness of Breath Cardiovascular: Reports: No Symptoms. Denies: Chest Pain Gastrointestinal: Reports: Abdominal Pain, Diarrhea Musculoskeletal: Reports: No Symptoms Skin: Reports: No Symptoms Neurological: Reports: No Symptoms. Denies: Confusion, Dizziness, Headache, Numbness Psychiatric: Reports: No Symptoms - Patient Data Vitals - Most Recent: Last Vital Signs Temp 97.3 F 12/02/19 08:00 Pulse 70 12/02/19 08:53 Resp 20 12/02/19 08:00 BP 167/68 H 12/02/19 08:53 Pulse Ox 95 12/02/19 04:00 Weight - Most Recent: 145 lb I&O - Last 24 Hours: Intake & Output 12/01/19 12/02/19 12/02/19 22:59 06:59 14:59 Intake Total 300 Balance 300 Lab Results Last 24 Hours: Laboratory Results - last 24 hr 12/02/19 12/02/19 Range/Units 08:25 08:25 WBC 13.2 H D (4.0-11.0) K/uL RBC 4.76 (3.80-5.80) M/uL Hgb 14.7 (11.5-16.5) g/dL Hct 43.4 (37.0-47.0) % MCV 91 (76-96) fL MCH 30.9 (27.0-32.0) pg MCHC 33.9 (31.0-35.0) g/dL RDW 14.1 (11.0-16.0) % Plt Count 240 (150-500) K/uL MPV 10.5 H (6.0-10.0) fL Neut % (Auto) 88.7 H (45.0-70.0) % Lymph % (Auto) 8.0 L (20.0-40.0) % [place] % (Auto) 3.1 (3.0-10.0) % Eos % (Auto) 0.1 L (1.0-5.0) % Baso % (Auto) 0.1 (0.0-0.5) % Neut # (Auto) 11.72 H (2.00-7.50) K/uL Lymph # (Auto) 1.06 L (1.50-4.00) K/uL [place] # (Auto) 0.41 (0.20-0.80) K/uL Eos # (Auto) 0.01 L (0.04-0.40) K/uL Baso # (Auto) 0.01 L (0.02-0.10) K/uL Sodium 136 (136-145) mmol/L Potassium 3.6 (3.5-5.1) mmol/L Chloride 101 (98-107) mmol/L Carbon Dioxide 23.3 (21.0-32.0) mmol/L Anion Gap 15.3 H (5.0-15.0) mmol/L BUN 17 D (8-26) mg/dL Creatinine 0.80 (0.55-1.02) mg/dL Est Cr Clr Drug Dosing 45.20 mL/min Estimated GFR (MDRD) > 60 (>60) MLS/MIN BUN/Creatinine Ratio 21.3 (6-25) Glucose 111 H (74-100) mg/dL Calcium 9.4 (8.5-10.1) mg/dL Total Bilirubin 0.7 (0.0-1.0) mg/dL AST 24 (15-37) U/L ALT 20 (12-78) U/L Alkaline Phosphatase 84 (46-116) U/L Total Protein 7.4 (6.4-8.2) g/dL Albumin 3.2 L (3.4-5.0) g/dL Globulin 4.2 (2.2-4.2) g/dL Albumin/Globulin Ratio 0.8 (0.8-2.0) [place] Results Last 24 Hours: Microbiology 12/01/19 06:04 MRSA Surveillance Culture - Final Nares, Unspecified NO MRSA ISOLATED Med Orders - Current: Current Medications Acetaminophen (Tylenol) 650 mg PO Q4H PRN PRN Reason: Pain (Mild 1-3)/fever Last Admin: 12/01/19 15:39 Dose: 650 mg Documented by: Apixaban (Eliquis) 5 mg PO BID [facility] Last Admin: 12/02/19 08:53 Dose: 5 mg Documented by: Ceftriaxone Sodium 1 gm/ (Sodium Chloride) 50 mls @ 100 mls/hr IV Q24H [facility] Last Admin: 12/01/19 21:08 Dose: 100 mls/hr Documented by: Metronidazole (Flagyl 500 Mg In Ns 100 Ml) 100 mls @ 200 mls/hr IV Q8H [facility] Last Admin: 12/02/19 03:41 Dose: 200 mls/hr Documented by: Lisinopril (Prinivil) 5 mg PO DAILY [facility] Last Admin: 12/02/19 08:50 Dose: 5 mg Documented by: Metoprolol Tartrate (Lopressor) 25 mg PO BID [facility] Last Admin: 12/02/19 08:53 Dose: 25 mg Documented by: Morphine Sulfate (Morphine) 2 mg IVPUSH Q2H PRN PRN Reason: Pain (severe 7-10) Last Admin: 12/01/19 18:33 Dose: 2 mg Documented by: Ondansetron HCl (Zofran) 4 mg IV Q4H PRN PRN Reason: Nausea/Vomiting Sodium Chloride (Saline Flush) 10 ml FLUSH ASDIRECTED PRN PRN Reason: IV Use Last Admin: 12/01/19 14:39 Dose: 10 ml Documented by: Discontinued Medications Sodium Chloride (Normal Saline) 1,000 mls @ 75 mls/hr IV ASDIRECTED [facility] Stop: 12/01/19 05:00 Last Admin: 11/30/19 17:15 Dose: 125 mls/hr Documented by: Metronidazole 500 mg/ Premix 100 mls @ 100 mls/hr IV Q8H [facility] Last Admin: 12/01/19 04:10 Dose: 100 mls/hr Documented by: Metronidazole (Flagyl 500 Mg In Ns 100 Ml) Confirm Administered Dose 100 mls @ as directed .ROUTE .STK-MED ONE Stop: 11/30/19 21:47 Last Admin: 11/30/19 21:57 Dose: Not Given Documented by: Metronidazole (Flagyl 500 Mg In Ns 100 Ml) Confirm Administered Dose 100 mls @ as directed .ROUTE .STK-MED ONE Stop: 12/01/19 03:58 Last Admin: 12/01/19 04:12 Dose: Not Given Documented by: Morphine Sulfate (Morphine) 2 mg IVPUSH ONETIME ONE Stop: 11/30/19 16:42 Last Admin: 11/30/19 17:21 Dose: 2 mg Documented by: Morphine Sulfate (Morphine) Confirm Administered Dose 2 mg .ROUTE .STK-MED ONE Stop: 11/30/19 17:31 Last Admin: 11/30/19 17:41 Dose: Not Given Documented by: - Exam General: Alert, Oriented, Cooperative, No Acute Distress HEENT: Pupils Equal, Pupils Reactive Neck: Supple, Trachea Midline Lungs: Clear to Auscultation, Normal Respiratory Effort Cardiovascular: Regular Rate, Regular Rhythm GI/Abdominal Exam: Normal Bowel Sounds, Soft, Non-Tender, No Organomegaly. No: No Distention Back Exam: Normal Inspection Extremities: Normal Inspection Skin: Warm Neurological: No New Focal Deficit, Normal Gait Psy/Mental Status: Alert, Normal Affect, Normal Mood Sepsis Event Note - Evaluation Sepsis Screening Result: No Definite Risk - Focused Exam Vital Signs: Vital Signs Temp Pulse Pulse Resp BP BP Pulse Ox 12/02/19 08:53 70 167/68 H 12/02/19 08:50 167/68 H 12/02/19 08:00 97.3 F 70 20 167/68 H 12/02/19 04:00 98.7 F 70 18 176/86 H 95 12/02/19 00:00 97.5 F 76 18 135/61 98 - Problem List Review Problem List Initiated/Reviewed/Updated: Yes - My Orders Last 24 Hours: My Active Orders 12/01/19 12:00 metroNIDAZOLE/Normal Saline [Flagyl 500 MG in NS 100 ML] 100 ml IV Q8H - Plan Plan:: Enteritis - Continue on current antibiotics treatment and plan. Patient has decreased appetite and we will continue to advance only as tolerated. F/u am labs and evaluation/exam for further plan.
[2019-12-02] MEDS ORDERED: Pantoprazole 40 MG Vial IVPUSH ONE (11:05)
[2019-12-02] MEDS: Sodium Chloride 0.9% 10 ML Syringe FLUSH PRN (13:29)
[2019-12-02] MEDS: cefTRIAXone 1 GM in Sodium Chloride 0.9% 50 ML IV SCH (20:49)
[2019-12-02] MEDS: Acetaminophen 325 MG Tab PO PRN (21:09)
[2019-12-03] MEDS: Metoprolol Tartrate 25 MG Tab PO SCH ×2 (08:29→20:07)
[2019-12-03] MEDS: Apixaban 5 MG Tab PO SCH ×2 (08:29→20:07)
[2019-12-03] MEDS: Lisinopril 5 MG Tab PO SCH (08:30)
[2019-12-03] MEDS ORDERED: Sodium Chloride 0.9% with KCl 1,000 ML ONE (09:54)
[2019-12-03] MEDS ORDERED: Sodium Chloride 0.9% with KCl 1,000 ML IV SCH (10:30)
--- NOTE | 2019-12-03 11:20 | PCM.PN ---
- General Info Date of Service: 12/03/19 Admission Dx/Problem (Free Text): Abdominal pain improved but significant diarrhea maybe related to Flagyl. Flagyl stopped and Probiotic given yesterday with improvement of diarrhea yesterday and overnight until today when she had an explosive slightly greenish tinged encopresis. Her potassium had dropped to 2.9 due to 2 days of diarrhea. Probiotics given today as well as 40mg of IV potassium and plan to start po potassium this evening. Functional Status: Reports: Pain Controlled - Review of Systems General: Denies: Fever, Malaise HEENT: Reports: No Symptoms Pulmonary: Reports: No Symptoms Cardiovascular: Reports: No Symptoms. Denies: Chest Pain Gastrointestinal: Reports: Diarrhea Musculoskeletal: Reports: No Symptoms Skin: Reports: No Symptoms Neurological: Reports: No Symptoms - Patient Data Vitals - Most Recent: Last Vital Signs Temp 97.9 F 12/03/19 08:00 Pulse 64 12/03/19 08:29 Resp 18 12/03/19 08:00 BP 169/66 H 12/03/19 08:30 Pulse Ox 98 12/03/19 08:00 Weight - Most Recent: 145 lb I&O - Last 24 Hours: Intake & Output 12/02/19 12/03/19 12/03/19 22:59 06:59 14:59 Intake Total 900 Balance 900 Lab Results Last 24 Hours: Laboratory Results - last 24 hr 12/02/19 12/02/19 12/03/19 Range/Units 17:04 17:04 09: WBC 11.9 H 11.4 H (4.0-11.0) K/uL RBC 4.53 4.65 (3.80-5.80) M/uL Hgb 13.9 14.3 (11.5-16.5) g/dL Hct 40.9 41.6 (37.0-47.0) % MCV 90 90 (76-96) fL MCH 30.7 30.8 (27.0-32.0) pg MCHC 34.0 34.4 (31.0-35.0) g/dL RDW 13.8 13.6 (11.0-16.0) % Plt Count 244 308 D (150-500) K/uL MPV 10.5 H 10.6 H (6.0-10.0) fL Neut % (Auto) 86.4 H 87.1 H (45.0-70.0) % Lymph % (Auto) 8.6 L 7.3 L (20.0-40.0) % [place] % (Auto) 4.5 4.9 (3.0-10.0) % Eos % (Auto) 0.3 L 0.5 L (1.0-5.0) % Baso % (Auto) 0.2 0.2 (0.0-0.5) % Neut # (Auto) 10.31 H 9.94 H (2.00-7.50) K/uL Lymph # (Auto) 1.02 L 0.83 L (1.50-4.00) K/uL [place] # (Auto) 0.53 0.56 (0.20-0.80) K/uL Eos # (Auto) 0.03 L 0.06 (0.04-0.40) K/uL Baso # (Auto) 0.02 0.02 (0.02-0.10) K/uL Sodium 134 L (136-145) mmol/L Potassium 3.5 (3.5-5.1) mmol/L Chloride 100 (98-107) mmol/L Carbon Dioxide 22.0 (21.0-32.0) mmol/L Anion Gap 15.5 H (5.0-15.0) mmol/L BUN 18 (8-26) mg/dL Creatinine 0.79 (0.55-1.02) mg/dL Est Cr Clr Drug Dosing 45.78 mL/min Estimated GFR (MDRD) > 60 (>60) MLS/MIN BUN/Creatinine Ratio 22.8 (6-25) Glucose 105 H (74-100) mg/dL Calcium 9.1 (8.5-10.1) mg/dL 12/03/19 Range/Units 09:20 WBC (4.0-11.0) K/uL RBC (3.80-5.80) M/uL Hgb (11.5-16.5) g/dL Hct (37.0-47.0) % MCV (76-96) fL MCH (27.0-32.0) pg MCHC (31.0-35.0) g/dL RDW (11.0-16.0) % Plt Count (150-500) K/uL MPV (6.0-10.0) fL Neut % (Auto) (45.0-70.0) % Lymph % (Auto) (20.0-40.0) % [place] % (Auto) (3.0-10.0) % Eos % (Auto) (1.0-5.0) % Baso % (Auto) (0.0-0.5) % Neut # (Auto) (2.00-7.50) K/uL Lymph # (Auto) (1.50-4.00) K/uL [place] # (Auto) (0.20-0.80) K/uL Eos # (Auto) (0.04-0.40) K/uL Baso # (Auto) (0.02-0.10) K/uL Sodium 132 L (136-145) mmol/L Potassium 2.9 L* (3.5-5.1) mmol/L Chloride 98 (98-107) mmol/L Carbon Dioxide 21.4 (21.0-32.0) mmol/L Anion Gap 15.5 H (5.0-15.0) mmol/L BUN 14 D (8-26) mg/dL Creatinine 0.84 (0.55-1.02) mg/dL Est Cr Clr Drug Dosing 43.05 mL/min Estimated GFR (MDRD) > 60 (>60) MLS/MIN BUN/Creatinine Ratio 16.7 (6-25) Glucose 132 H (74-100) mg/dL Calcium 8.9 (8.5-10.1) mg/dL Donell Results Last 24 Hours: Microbiology 12/02/19 15:50 Clostridioides difficile (PCR) - Final Stool / Feces 12/01/19 06:04 MRSA Surveillance Culture - Final Nares, Unspecified NO MRSA ISOLATED Med Orders - Current: Current Medications Acetaminophen (Tylenol) 650 mg PO Q4H PRN PRN Reason: Pain (Mild 1-3)/fever Last Admin: 12/02/19 21:09 Dose: 650 mg Documented by: Apixaban (Eliquis) 5 mg PO BID [facility] Last Admin: 12/03/19 08:29 Dose: 5 mg Documented by: Ceftriaxone Sodium 1 gm/ (Sodium Chloride) 50 mls @ 100 mls/hr IV Q24H [facility] Last Admin: 12/02/19 20:49 Dose: 100 mls/hr Documented by: Metronidazole (Flagyl 500 Mg In Ns 100 Ml) 100 mls @ 200 mls/hr IV Q8H [facility] Last Admin: 12/02/19 20:52 Dose: Not Given Documented by: Potassium Chloride/Sodium Chloride (Normal Saline With 40 Meq Kcl) 1,000 mls @ 200 mls/hr IV ASDIRECTED [facility] Stop: 12/03/19 15:29 Lisinopril (Prinivil) 5 mg PO DAILY [facility] Last Admin: 12/03/19 08:30 Dose: 5 mg Documented by: Metoprolol Tartrate (Lopressor) 25 mg PO BID [facility] Last Admin: 12/03/19 08:29 Dose: 25 mg Documented by: Morphine Sulfate (Morphine) 2 mg IVPUSH Q2H PRN PRN Reason: Pain (severe 7-10) Last Admin: 12/01/19 18:33 Dose: 2 mg Documented by: Ondansetron HCl (Zofran) 4 mg IV Q4H PRN PRN Reason: Nausea/Vomiting Sodium Chloride (Saline Flush) 10 ml FLUSH ASDIRECTED PRN PRN Reason: IV Use Last Admin: 12/02/19 13:29 Dose: 10 ml Documented by: Discontinued Medications Sodium Chloride (Normal Saline) 1,000 mls @ 75 mls/hr IV ASDIRECTED [facility] Stop: 12/01/19 05:00 Last Admin: 11/30/19 17:15 Dose: 125 mls/hr Documented by: Metronidazole 500 mg/ Premix 100 mls @ 100 mls/hr IV Q8H [facility] Last Admin: 12/01/19 04:10 Dose: 100 mls/hr Documented by: Metronidazole (Flagyl 500 Mg In Ns 100 Ml) Confirm Administered Dose 100 mls @ as directed .ROUTE .STK-MED ONE Stop: 11/30/19 21:47 Last Admin: 11/30/19 21:57 Dose: Not Given Documented by: Metronidazole (Flagyl 500 Mg In Ns 100 Ml) Confirm Administered Dose 100 mls @ as directed .ROUTE .STK-MED ONE Stop: 12/01/19 03:58 Last Admin: 12/01/19 04:12 Dose: Not Given Documented by: Potassium Chloride/Sodium Chloride (Normal Saline With 40 Meq Kcl) Confirm Administered Dose 1,000 mls @ as directed .ROUTE .STK-MED ONE Stop: 12/03/19 09:55 Morphine Sulfate (Morphine) 2 mg IVPUSH ONETIME ONE Stop: 11/30/19 16:42 Last Admin: 11/30/19 17:21 Dose: 2 mg Documented by: Morphine Sulfate (Morphine) Confirm Administered Dose 2 mg .ROUTE .STK-MED ONE Stop: 11/30/19 17:31 Last Admin: 11/30/19 17:41 Dose: Not Given Documented by: Pantoprazole Sodium (Protonix Iv) 40 mg IVPUSH ONETIME ONE Stop: 12/02/19 11:06 Last Admin: 12/02/19 13:00 Dose: 40 mg Documented by: - Exam General: Alert, Oriented, Cooperative, Mild Distress HEENT: Pupils Equal Neck: Supple, Trachea Midline Lungs: Clear to Auscultation, Normal Respiratory Effort Cardiovascular: Regular Rate, Regular Rhythm GI/Abdominal Exam: Normal Bowel Sounds, Soft, No Distention, No Abnormal Bruit, No Mass Skin: Warm, Dry, Intact Neurological: No New Focal Deficit Psy/Mental Status: Alert, Normal Affect Sepsis Event Note - Evaluation Sepsis Screening Result: No Definite Risk - Focused Exam Vital Signs: Vital Signs Temp Pulse Pulse Resp BP BP BP 12/03/19 08:30 169/66 H 12/03/19 08:29 64 169/66 H 12/03/19 08:00 97.9 F 64 18 169/66 H 12/03/19 04:00 99.0 F 18 178/88 H 12/03/19 00:00 16 156/80 H Pulse Ox 12/03/19 08:30 12/03/19 08:29 12/03/19 08:00 98 12/03/19 04:00 100 12/03/19 00:00 99 - Problem List Review Problem List Initiated/Reviewed/Updated: Yes - My Orders Last 24 Hours: My Active Orders 12/02/19 Lunch Alexander Diet [DIET] 12/03/19 10:30 Sodium Chloride 0.9% with KCl [Normal Saline with 40 mEq KCl] 1,000 ml IV ASDIRECTED - Plan Plan:: Enteritis - Continue on current antibiotics treatment and plan. Patient has decreased appetite and we will continue to advance only as tolerated. F/u am labs and evaluation/exam for further plan.
[2019-12-03] MEDS: Pantoprazole 40 MG Vial IVPUSH ONE ×2 (11:49→11:50)
[2019-12-03] MEDS ORDERED: Loperamide 2 MG Cap PO PRN (13:55)
[2019-12-03] MEDS ORDERED: Loperamide 2 MG Cap PO ONE (13:56)
--- NOTE | 2019-12-03 14:04 | PCM.HP.2 ---
H&P History of Present Illness - General Date of Service: 12/03/19 Admit Problem/Dx: Abdominal pain improved but significant diarrhea maybe related to Flagyl. Flagyl stopped and Probiotic given yesterday with improvement of diarrhea yesterday and overnight until today when she had an explosive slightly greenish tinged encopresis. Her potassium had dropped to 2.9 due to 2 days of diarrhea. Probiotics given today as well as 40mg of IV potassium and plan to start po potassium this evening. Source of Information: Patient - History of Present Illness Initial Comments - Free Text/Narative: Pt was admitted for observation past two days for abdominal pain (ileitis) requiring abx tx. After two days of IV protracted diarrhea resulted in hypokalemia K+ 2.9 Started potassium replacement and discontinued Flagyl. Today will transfer to inpatient status where we can continue potassium replacement. Location: Reports: Generalized Quality: Reports: Ache Severity: Mild Improves with: Reports: Medication, Rest Associated Symptoms: Reports: Weakness, Other (diarrhea) Right Middle Abdominal Pain Score (Numeric/FACES): 2 - Related Data Allergies/Adverse Reactions: Allergies Allergy/AdvReac Type Severity Reaction Status Date / Time hydrocodone bitartrate Allergy Itching Verified 12/30/14 18:06 [From Vicodin] penicillin Allergy Rash Verified 12/30/14 18:06 Oxycodone ? Allergy Redness Uncoded 12/30/14 18:06 Home Medications: Home Meds lisinopriL [Lisinopril] 5 mg PO DAILY 08/24/19 [History] Apixaban [Eliquis] 5 mg PO BID 11/30/19 [History] Magnesium Amino Acid Chelate [Magnesium] 250 mg PO DAILY 11/30/19 [History] Metoprolol Tartrate 25 mg PO BID 11/30/19 [History] Past Medical History Cardiovascular History: Reports: Hypertension Gastrointestinal History: Reports: Other (See Below) Other Gastrointestinal History: abd pain one month ago Other OB/BYN History: hysterectomy - Past Surgical History Other Musculoskeletal Surgeries/Procedures:: R hip replacements x2, L hip replacments x2, carpal tunnel surgery B Social & Family History - Tobacco Use Smoking Status *Q: Never Smoker Second Hand Smoke Exposure: No - Caffeine Use Caffeine Use: Reports: Coffee, Tea Caffeine Use Comment: very little - Recreational Drug Use Recreational Drug Use: No - Living Situation & Occupation Living situation: Reports: Occupation: Retired H&P Review of Systems - Review of Systems: Review Of Systems: See Below General: Reports: Weakness HEENT: Reports: No Symptoms Pulmonary: Reports: No Symptoms. Denies: Wheezing, Cough Cardiovascular: Reports: No Symptoms Gastrointestinal: Reports: Abdominal Pain, Diarrhea Musculoskeletal: Reports: No Symptoms Skin: Reports: No Symptoms Psychiatric: Reports: No Symptoms Neurological: Reports: No Symptoms Exam - Exam Exam: See Below - Vital Signs Vital Signs: Last Vital Signs Temp 97.9 F 12/03/19 12:00 Pulse 64 12/03/19 08:29 Resp 18 12/03/19 12:00 BP 156/66 H 12/03/19 12:00 Pulse Ox 98 12/03/19 12:00 Weight: 145 lb - Exam General: Alert, Oriented, Cooperative HEENT: PERRLA, Conjunctiva Clear Neck: Supple, Trachea Midline Lungs: Clear to Auscultation, Crackles Cardiovascular: Regular Rate, Regular Rhythm GI/Abdominal Exam: Normal Bowel Sounds, Soft, Non-Tender, No Distention, No Abnormal Bruit Back Exam: Normal Inspection Extremities: Normal Inspection Skin: Warm, Dry - Patient Data Lab Results Last 24 hrs: Laboratory Results - last 24 hr 12/02/19 12/02/19 12/03/19 Range/Units 17:04 17:04 09:20 WBC 11.9 H 11.4 H (4.0-11.0) K/uL RBC 4.53 4.65 (3.80-5.80) M/uL Hgb 13.9 14.3 (11.5-16.5) g/dL Hct 40.9 41.6 (37.0-47.0) % MCV 90 90 (76-96) fL MCH 30.7 30.8 (27.0-32.0) pg MCHC 34.0 34.4 (31.0-35.0) g/dL RDW 13.8 13.6 (11.0-16.0) % Plt Count 244 308 D (150-500) K/uL MPV 10.5 H 10.6 H (6.0-10.0) fL Neut % (Auto) 86.4 H 87.1 H (45.0-70.0) % Lymph % (Auto) 8.6 L 7.3 L (20.0-40.0) % [place] % (Auto) 4.5 4.9 (3.0-10.0) % Eos % (Auto) 0.3 L 0.5 L (1.0-5.0) % Baso % (Auto) 0.2 0.2 (0.0-0.5) % Neut # (Auto) 10.31 H 9.94 H (2.00-7.50) K/uL Lymph # (Auto) 1.02 L 0.83 L (1.50-4.00) K/uL [place] # (Auto) 0.53 0.56 (0.20-0.80) K/uL Eos # (Auto) 0.03 L 0.06 (0.04-0.40) K/uL Baso # (Auto) 0.02 0.02 (0.02-0.10) K/uL Sodium 134 L (136-145) mmol/L Potassium 3.5 (3.5-5.1) mmol/L Chloride 100 (98-107) mmol/L Carbon Dioxide 22.0 (21.0-32.0) mmol/L Anion Gap 15.5 H (5.0-15.0) mmol/L BUN 18 (8-26) mg/dL Creatinine 0.79 (0.55-1.02) mg/dL Est Cr Clr Drug Dosing 45.78 mL/min Estimated GFR (MDRD) > 60 (>60) MLS/MIN BUN/Creatinine Ratio 22.8 (6-25) Glucose 105 H (74-100) mg/dL Calcium 9.1 (8.5-10.1) mg/dL 12/03/19 Range/Units 09:20 WBC (4.0-11.0) K/uL RBC (3.80-5.80) M/uL Hgb (11.5-16.5) g/dL Hct (37.0-47.0) % MCV (76-96) fL MCH (27.0-32.0) pg MCHC (31.0-35.0) g/dL RDW (11.0-16.0) % Plt Count (150-500) K/uL MPV (6.0-10.0) fL Neut % (Auto) (45.0-70.0) % Lymph % (Auto) (20.0-40.0) % [place] % (Auto) (3.0-10.0) % Eos % (Auto) (1.0-5.0) % Baso % (Auto) (0.0-0.5) % Neut # (Auto) (2.00-7.50) K/uL Lymph # (Auto) (1.50-4.00) K/uL [place] # (Auto) (0.20-0.80) K/uL Eos # (Auto) (0.04-0.40) K/uL Baso # (Auto) (0.02-0.10) K/uL Sodium 132 L (136-145) mmol/L Potassium 2.9 L* (3.5-5.1) mmol/L Chloride 98 (98-107) mmol/L Carbon Dioxide 21.4 (21.0-32.0) mmol/L Anion Gap 15.5 H (5.0-15.0) mmol/L BUN 14 D (8-26) mg/dL Creatinine 0.84 (0.55-1.02) mg/dL Est Cr Clr Drug Dosing 43.05 mL/min Estimated GFR (MDRD) > 60 (>60) MLS/MIN BUN/Creatinine Ratio 16.7 (6-25) Glucose 132 H (74-100) mg/dL Calcium 8.9 (8.5-10.1) mg/dL Result Diagrams: 12/03/19 09:20 12/03/19 09:20 Donell Results Last 24 hrs: Microbiology 12/02/19 15:50 Clostridioides difficile (PCR) - Final Stool / Feces 12/01/19 06:04 MRSA Surveillance Culture - Final Nares, Unspecified NO MRSA ISOLATED Sepsis Event Note - Evaluation Sepsis Screening Result: No Definite Risk - Focused Exam Vital Signs: Vital Signs Temp Pulse Pulse Resp BP BP BP 12/03/19 12:00 97.9 F 18 156/66 H 12/03/19 08:30 169/66 H 12/03/19 08:29 64 169/66 H 12/03/19 08:00 97.9 F 64 18 169/66 H 12/03/19 04:00 99.0 F 18 178/88 H Pulse Ox 12/03/19 12:00 98 12/03/19 08:30 12/03/19 08:29 12/03/19 08:00 98 12/03/19 04:00 100 Problem List Initiated/Reviewed/Updated: Yes Orders Last 24hrs: Active Orders 24 hr Category Date Time Status GIARDIA LAMBLIA AG, EIA Routine Lab 12/03/19 13:56 Ordered STOOL CULTURE Routine Lab 12/03/19 13:56 Ordered T-TRANSGLUTAMINASE (TTG) IGA DAILY Lab 12/03/19 14:00 Ordered T-TRANSGLUTAMINASE (TTG) IGG DAILY Lab 12/03/19 14:00 Ordered TTG IGA/G DAILY Lab 12/03/19 14:00 Ordered WHITE BLOOD CELLS (WBC), STOOL Routine Lab 12/03/19 13:56 Ordered Loperamide [Imodium] Med 12/03/19 13:56 Once 2 mg PO ONETIME ONE Loperamide [Imodium] Med 12/03/19 13:55 Ordered 2 mg PO Q6H PRN Potassium Chloride [Klor-Con M20] Med 12/03/19 20:00 Active 40 meq PO BEDTIME Sodium Chloride 0.9% with KCl [Normal Saline with 40 Med 12/03/19 10:30 Active mEq KCl] 1,000 ml IV ASDIRECTED Medication Orders Acetaminophen (Tylenol) 650 mg PO Q4H PRN PRN Reason: Pain (Mild 1-3)/fever Last Admin: 12/02/19 21:09 Dose: 650 mg Documented by: Admin: 12/01/19 15:39 Dose: 650 mg Documented by: Admin: 12/01/19 04:10 Dose: 650 mg Documented by: [email or web address] Admin: 11/30/19 21:56 Dose: 650 mg Documented by: [id number] Apixaban (Eliquis) 5 mg PO BID [facility] Last Admin: 12/03/19 08:29 Dose: 5 mg Documented by: Admin: 12/02/19 20:50 Dose: 5 mg Documented by: Admin: 12/02/19 08:53 Dose: 5 mg Documented by: Admin: 12/01/19 21:07 Dose: 5 mg Documented by: Admin: 12/01/19 08:22 Dose: 5 mg Documented by: Admin: 11/30/19 21:04 Dose: 5 mg Documented by: [id number] Ceftriaxone Sodium 1 gm/ (Sodium Chloride) 50 mls @ 100 mls/hr IV Q24H [facility] Last Admin: 12/02/19 20:49 Dose: 100 mls/hr Documented by: Admin: 12/01/19 21:08 Dose: 100 mls/hr Documented by: Admin: 11/30/19 20:56 Dose: 100 mls/hr Documented by: [id number] Metronidazole (Flagyl 500 Mg In Ns 100 Ml) 100 mls @ 200 mls/hr IV Q8H [facility] Last Admin: 12/02/19 20:52 Dose: Not Given Documented by: Admin: 12/02/19 13:30 Dose: Not Given Documented by: Admin: 12/02/19 03:41 Dose: 200 mls/hr Documented by: Infusion: 12/01/19 21:38 Dose: 200 mls/hr Documented by: Admin: 12/01/19 21:08 Dose: 200 mls/hr Documented by: Infusion: 12/01/19 12:22 Dose: 200 mls/hr Documented by: Admin: 12/01/19 11:52 Dose: 200 mls/hr Documented by: CARMITA Potassium Chloride/Sodium Chloride (Normal Saline With 40 Meq Kcl) 1,000 mls @ 200 mls/hr IV ASDIRECTED [facility] Stop: 12/03/19 15:29 Last Admin: 12/03/19 10:00 Dose: 200 mls/hr Documented by: IRENA Lisinopril (Prinivil) 5 mg PO DAILY [facility] Last Admin: 12/03/19 08:30 Dose: 5 mg Documented by: Admin: 12/02/19 08:50 Dose: 5 mg Documented by: Admin: 12/01/19 08:22 Dose: 5 mg Documented by: CARMITA Loperamide HCl (Imodium) 2 mg PO Q6H PRN PRN Reason: Diarrhea Loperamide HCl (Imodium) 2 mg PO ONETIME ONE Stop: 12/03/19 13:57 Metoprolol Tartrate (Lopressor) 25 mg PO BID [facility] Last Admin: 12/03/19 08:29 Dose: 25 mg Documented by: Admin: 12/02/19 20:50 Dose: 25 mg Documented by: Admin: 12/02/19 08:53 Dose: 25 mg Documented by: Admin: 12/01/19 21:10 Dose: 25 mg Documented by: Admin: 12/01/19 08:22 Dose: 25 mg Documented by: Admin: 11/30/19 21:04 Dose: 25 mg Documented by: JOANN Morphine Sulfate (Morphine) 2 mg IVPUSH Q2H PRN PRN Reason: Pain (severe 7-10) Last Admin: 12/01/19 18:33 Dose: 2 mg Documented by: Admin: 12/01/19 12:24 Dose: 2 mg Documented by: Admin: 12/01/19 09:20 Dose: 2 mg Documented by: Admin: 12/01/19 06:31 Dose: 2 mg Documented by: Admin: 12/01/19 04:11 Dose: 2 mg Documented by: Admin: 12/01/19 02:26 Dose: 2 mg Documented by: Admin: 11/30/19 20:58 Dose: 2 mg Documented by: JOANN Ondansetron HCl (Zofran) 4 mg IV Q4H PRN PRN Reason: Nausea/Vomiting Potassium Chloride (Klor-Con M20) 40 meq PO BEDTIME SAV Sodium Chloride (Saline Flush) 10 ml FLUSH ASDIRECTED PRN PRN Reason: IV Use Last Admin: 12/02/19 13:29 Dose: 10 ml Documented by: Admin: 12/01/19 14:39 Dose: 10 ml Documented by: Admin: 12/01/19 06:32 Dose: 10 ml Documented by: Admin: 12/01/19 06:31 Dose: 10 ml Documented by: Admin: 12/01/19 04:16 Dose: 10 ml Documented by: Admin: 12/01/19 02:28 Dose: 10 ml Documented by: JOANN Assessment/Plan Comment:: Enteritis - Continue on current antibiotics treatment and plan. Patient has decreased appetite and we will continue to advance only as tolerated. F/u am labs and evaluation/exam for further plan.
--- NOTE | 2019-12-03 14:06 | PCM.SN.2 ---
- Free Text/Narrative Note: [facility] NOTE: eHospitalist was contacted by Dr. John Dunbar with request of consultation for diarrhea: Reason for consult: Watery diarrhea HPI: This is an 84-year-old woman with a past medical history significant for degenerative arthritis, hypertension and hypercholesterolemia who was in her usual state of health up until earlier in the week when the patient awakened suddenly in the morning with crampy type abdominal pain. This resulted in watery diarrhea persisting to the extent that the patient sought medical attention on 11/30/2019. Patient describes her diarrhea as voluminous and watery. Multiple times a day. It is associated with a poor appetite. It gets worse with food and better with fasting. She is admitted to the hospital where she was found to have evidence of enteritis and loops of dilated bowel on CT scan. She was started on broad-spectrum antibiotic therapy with ceftriaxone and Flagyl. C. difficile has been ruled out at this time. Patient had a similar episode this spring and notes that she did not pursue colonoscopy at the time. Patient notes that her stools were getting better but when she drank some coffee this morning they got worse again. No blood is noted. Patient does have a hemorrhoid that she has had since 1983. She has chosen not to get a colonoscopy in the past because she does not want to upset this. She does take Advil every morning and Advil PM every evening. She also is on several supplements including co-Q10, Elisa Jennifer's, vitamin E, vitamin K, vitamin B, calcium. Overall the patient is feeling okay. She notes that her diet is somewhat limited stating that she can hardly have any sugar before she gets any stomach or cramping type pain in her abdomen. Home Medications: Reviewed Pertinent Medical History: Reviewed Pertinent Social History: Reviewed Exam (performed via interactive video with assistance of bedside nurse): Equipment not working during this visit General: Patient is awake alert and in no acute distress. She makes good eye contact. Mood is upbeat and affect is appropriate. She is sitting up in a chair and able to adjust herself easily. Nursing notes that the patient's stomach is somewhat tympanic but otherwise has no tenderness or distention. [Recent lab: Reviewed] [ Assessment and Plan: 1. Watery diarrhea with evidence of enteritis on CT scan: Differential diagnosis includes infectious diarrhea versus food sensitive versus celiac disease versus collagenous colitis. Since this is a second similar episode I do think the patient would benefit from colonoscopy but since she is doing well currently I do not think there is any urgency to this. Would continue her bland diet as above along with her IV antibiotic therapy. Have recommended that she discontinue her Advil altogether as this could be part of her issue. I have also sent labs away including Giardia and TTG for celiac disease. I did recommend that the patient get a colonoscopy. I understand that there will be someone in the facility to do colonoscopy on 12/08/2019 but I would also consider referral to the gastroenterology office as if this is collagenous colitis the treatment pathway is somewhat different. We will also start loperamide for control of the diarrhea. If this is not improve by Wednesday and she remains to have symptoms I would recommend transferring her out for further GI work-up and evaluation. Thank you for including [facility] in the patients care. This service is available for further assistance as requested by your care team by calling [phone].
[2019-12-03] MEDS ORDERED: Potassium Chloride 20 MEQ Tab.ER PO SCH (20:00)
[2019-12-03] MEDS: cefTRIAXone 1 GM in Sodium Chloride 0.9% 50 ML IV SCH (20:06)
[2019-12-03] MEDS: Acetaminophen 325 MG Tab PO PRN (22:19)
[2019-12-04] MEDS: Metoprolol Tartrate 25 MG Tab PO SCH (08:43)
[2019-12-04] MEDS: Lisinopril 5 MG Tab PO SCH (08:43)
[2019-12-04] MEDS: Apixaban 5 MG Tab PO SCH (08:44)
--- NOTE | 2019-12-04 10:22 | PCM.PN ---
- General Info Date of Service: 12/04/19 Admission Dx/Problem (Free Text): Abdominal pain improved but significant diarrhea maybe related to Flagyl. Flagyl stopped and Probiotic given yesterday with improvement of diarrhea yesterday and overnight until today when she had an explosive slightly greenish tinged encopresis. Her potassium had dropped to 2.9 due to 2 days of diarrhea. Probiotics given today as well as 40mg of IV potassium and plan to start po potassium this evening. Subjective Update: Patient notes mild improvement of the abdominal discomfort and feels it is about the same as the last time she had Enteritis. She denies any fever or chills. No chest pain or shortness of breath. Functional Status: Reports: Pain Controlled - Review of Systems General: Reports: No Symptoms. Denies: Fever, Weakness HEENT: Reports: No Symptoms Pulmonary: Reports: No Symptoms. Denies: Shortness of Breath Cardiovascular: Reports: No Symptoms. Denies: Chest Pain Gastrointestinal: Reports: No Symptoms, Nausea, Other (diarrhea has resolved). Denies: Abdominal Pain, Vomiting Musculoskeletal: Reports: No Symptoms Skin: Reports: No Symptoms Neurological: Reports: No Symptoms - Patient Data Vitals - Most Recent: Last Vital Signs Temp 97.4 F 12/04/19 04:00 Pulse 63 12/04/19 08:43 Resp 16 12/04/19 04:00 BP 141/112 H 12/04/19 08:43 Pulse Ox 96 12/04/19 04:00 Weight - Most Recent: 145 lb Lab Results Last 24 Hours: Laboratory Results - last 24 hr 12/03/19 12/04/19 12/04/19 Range/Units 09: 08:20 08:20 WBC 8.3 D (4.0-11.0) K/uL RBC 4.42 (3.80-5.80) M/uL Hgb 13.7 (11.5-16.5) g/dL Hct 39.9 (37.0-47.0) % MCV 90 (76-96) fL MCH 31.0 (27.0-32.0) pg MCHC 34.3 (31.0-35.0) g/dL RDW 13.7 (11.0-16.0) % Plt Count 289 (150-500) K/uL MPV 10.8 H (6.0-10.0) fL Neut % (Auto) 75.2 H (45.0-70.0) % Lymph % (Auto) 12.6 L (20.0-40.0) % [place] % (Auto) 10.6 H (3.0-10.0) % Eos % (Auto) 1.5 (1.0-5.0) % Baso % (Auto) 0.1 (0.0-0.5) % Neut # (Auto) 6.22 (2.00-7.50) K/uL Lymph # (Auto) 1.04 L (1.50-4.00) K/uL [place] # (Auto) 0.88 H (0.20-0.80) K/uL Eos # (Auto) 0.12 (0.04-0.40) K/uL Baso # (Auto) 0.01 L (0.02-0.10) K/uL Sodium 136 (136-145) mmol/L Potassium 4.2 D (3.5-5.1) mmol/L Chloride 104 (98-107) mmol/L Carbon Dioxide 20.1 L (21.0-32.0) mmol/L Anion Gap 16.1 H (5.0-15.0) mmol/L BUN 10 D (8-26) mg/dL Creatinine 0.74 (0.55-1.02) mg/dL Est Cr Clr Drug Dosing 48.87 mL/min Estimated GFR (MDRD) > 60 (>60) MLS/MIN BUN/Creatinine Ratio 13.5 (6-25) Glucose 92 D (74-100) mg/dL Calcium 8.7 (8.5-10.1) mg/dL Total Bilirubin 0.7 (0.0-1.0) mg/dL AST 18 (15-37) U/L ALT 18 (12-78) U/L Alkaline Phosphatase 73 (46-116) U/L Total Protein 6.3 L (6.4-8.2) g/dL Albumin 2.6 L (3.4-5.0) g/dL Globulin 3.7 (2.2-4.2) g/dL Albumin/Globulin Ratio 0.7 L (0.8-2.0) TSH, Ultra Sensitive 1.320 (0.358-3.740) uIU/mL Med Orders - Current: Current Medications Acetaminophen (Tylenol) 650 mg PO Q4H PRN PRN Reason: Pain (Mild 1-3)/fever Last Admin: 12/03/19 22:19 Dose: 650 mg Documented by: Apixaban (Eliquis) 5 mg PO BID [facility] Last Admin: 12/04/19 08:44 Dose: 5 mg Documented by: Ceftriaxone Sodium 1 gm/ (Sodium Chloride) 50 mls @ 100 mls/hr IV Q24H [facility] Last Admin: 12/03/19 20:06 Dose: 100 mls/hr Documented by: Lisinopril (Prinivil) 5 mg PO DAILY [facility] Last Admin: 12/04/19 08:43 Dose: 5 mg Documented by: Loperamide HCl (Imodium) 2 mg PO Q6H PRN PRN Reason: Diarrhea Metoprolol Tartrate (Lopressor) 25 mg PO BID [facility] Last Admin: 12/04/19 08:43 Dose: 25 mg Documented by: Morphine Sulfate (Morphine) 2 mg IVPUSH Q2H PRN PRN Reason: Pain (severe 7-10) Last Admin: 12/01/19 18:33 Dose: 2 mg Documented by: Ondansetron HCl (Zofran) 4 mg IV Q4H PRN PRN Reason: Nausea/Vomiting Potassium Chloride (Klor-Con M20) 40 meq PO BEDTIME [facility] Last Admin: 12/03/19 20:10 Dose: 40 meq Documented by: Sodium Chloride (Saline Flush) 10 ml FLUSH ASDIRECTED PRN PRN Reason: IV Use Last Admin: 12/02/19 13:29 Dose: 10 ml Documented by: Discontinued Medications Sodium Chloride (Normal Saline) 1,000 mls @ 75 mls/hr IV ASDIRECTED [facility] Stop: 12/01/19 05:00 Last Admin: 11/30/19 17:15 Dose: 125 mls/hr Documented by: Metronidazole 500 mg/ Premix 100 mls @ 100 mls/hr IV Q8H [facility] Last Admin: 12/01/19 04:10 Dose: 100 mls/hr Documented by: Metronidazole (Flagyl 500 Mg In Ns 100 Ml) Confirm Administered Dose 100 mls @ as directed .ROUTE .STK-MED ONE Stop: 11/30/19 21:47 Last Admin: 11/30/19 21:57 Dose: Not Given Documented by: Metronidazole (Flagyl 500 Mg In Ns 100 Ml) Confirm Administered Dose 100 mls @ as directed .ROUTE .[facility] ONE Stop: 12/01/19 03:58 Last Admin: 12/01/19 04:12 Dose: Not Given Documented by: Metronidazole (Flagyl 500 Mg In Ns 100 Ml) 100 mls @ 200 mls/hr IV Q8H [facility] Last Admin: 12/02/19 20:52 Dose: Not Given Documented by: Potassium Chloride/Sodium Chloride (Normal Saline With 40 Meq Kcl) Confirm Administered Dose 1,000 mls @ as directed .ROUTE .[facility] ONE Stop: 12/03/19 09:55 Potassium Chloride/Sodium Chloride (Normal Saline With 40 Meq Kcl) 1,000 mls @ 200 mls/hr IV ASDIRECTED [facility] Stop: 12/03/19 15:29 Last Admin: 12/03/19 10:00 Dose: 200 mls/hr Documented by: Loperamide HCl (Imodium) 2 mg PO ONETIME ONE Stop: 12/03/19 13:57 Last Admin: 12/03/19 17:00 Dose: 2 mg Documented by: Morphine Sulfate (Morphine) 2 mg IVPUSH ONETIME ONE Stop: 11/30/19 16:42 Last Admin: 11/30/19 17:21 Dose: 2 mg Documented by: Morphine Sulfate (Morphine) Confirm Administered Dose 2 mg .ROUTE .[facility] ONE Stop: 11/30/19 17:31 Last Admin: 11/30/19 17:41 Dose: Not Given Documented by: Pantoprazole Sodium (Protonix Iv) 40 mg IVPUSH ONETIME ONE Stop: 12/02/19 11:06 Last Admin: 12/02/19 13:00 Dose: 40 mg Documented by: Pantoprazole Sodium (Protonix Iv) 40 mg IVPUSH ONETIME ONE Stop: 12/03/19 11:25 Last Admin: 12/03/19 11:50 Dose: 40 mg Documented by: - Exam General: Alert, Oriented, Cooperative, No Acute Distress HEENT: Pupils Equal Neck: Supple, Trachea Midline Lungs: Clear to Auscultation, Normal Respiratory Effort Cardiovascular: Regular Rate, Regular Rhythm GI/Abdominal Exam: Normal Bowel Sounds, Soft, Non-Tender Back Exam: Normal Inspection Extremities: Normal Inspection Skin: Warm Wound/Incisions: Healing Well Neurological: No New Focal Deficit Psy/Mental Status: Alert, Normal Affect, Normal Mood Sepsis Event Note - Evaluation Sepsis Screening Result: No Definite Risk - Focused Exam Vital Signs: Vital Signs Temp Pulse Pulse Resp BP BP Pulse Ox 12/04/19 08:43 63 141/112 H 12/04/19 04:00 97.4 F 66 16 144/64 H 96 12/04/19 00:00 97.6 F 57 L 18 157/60 H 97 - Problem List Review Problem List Initiated/Reviewed/Updated: Yes - My Orders Last 24 Hours: My Active Orders 12/03/19 14:51 Admission Status [Patient Status] [ADT] Routine 12/03/19 20:00 Potassium Chloride [Klor-Con M20] 40 meq PO BEDTIME Enteritis resolved Hypokalemia resolved Plan:pt wants to be discharged and manage at home and follow-up with Dr Diallo this week - Assessment Assessment:: Hypokalemia and Diarrhea resolved - Plan Plan:: Enteritis - Continue on current antibiotics treatment and plan. Patient has decreased appetite and we will continue to advance only as tolerated. F/u am labs and evaluation/exam for further plan.
--- NOTE | 2019-12-04 10:30 | PCM.DCSUM1 ---
Discharge Summary - Hospital Course Free Text/Narrative:: Pt was discharged home with Rx Augmentin for Enteritis dx. She will follow-up this week with Dr Diallo,her primary doctor. She had diarrhea possibly due to combination abx:Rocephin and Flagyl Flagyl was stopped and Imodium was started. Pt requested to be discharged. I spoke with Dr Diallo who thought it would be alright for her to go home with abx and follow-up. HPI Initial Comments: Pt was admitted with dx of Abdominal pain, and was on NPO status with slow advancement to soft. She had several days of watery stools possibly as result of combination Rocephin and Flagyl. The diarrhea resulted in hypokalemia which was treated with IV potassium and po potassium which improved potassium back normal. Diagnosis: Stroke: No - Discharge Data Discharge Date: 12/04/19 Discharge Disposition: Home, Self-Care 01 Condition: Good - Referral to Home Health Primary Care Physician: PCP None - Discharge Plan *PRESCRIPTION DRUG MONITORING PROGRAM REVIEWED*: Not Applicable *COPY OF PRESCRIPTION DRUG MONITORING REPORT IN PATIENT ALINE: Not Applicable Home Medications: Home Meds lisinopriL [Lisinopril] 5 mg PO DAILY 08/24/19 [History] Apixaban [Eliquis] 5 mg PO BID 11/30/19 [History] Magnesium Amino Acid Chelate [Magnesium] 250 mg PO DAILY 11/30/19 [History] Metoprolol Tartrate 25 mg PO BID 11/30/19 [History] levoFLOXacin [Levaquin] 500 mg PO DAILY 10 Days #10 tab 12/04/19 [Rx] Forms: ED Department Discharge, ED Return to Work/School Form Referrals: PCP,None [Primary Care Provider] - - Discharge Summary/Plan Comment DC Time >30 min.: No - Patient Data Vitals - Most Recent: Last Vital Signs Temp 97.4 F 12/04/19 04:00 Pulse 63 12/04/19 08:43 Resp 16 12/04/19 04:00 BP 141/112 H 12/04/19 08:43 Pulse Ox 96 12/04/19 04:00 Weight - Most Recent: 145 lb Lab Results - Last 24 hrs: Laboratory Results - last 24 hr 12/03/19 12/04/19 12/04/19 Range/Units 09:20 08:20 08:20 WBC 8.3 D (4.0-11.0) K/uL RBC 4.42 (3.80-5.80) M/uL Hgb 13.7 (11.5-16.5) g/dL Hct 39.9 (37.0-47.0) % MCV 90 (76-96) fL MCH 31.0 (27.0-32.0) pg MCHC 34.3 (31.0-35.0) g/dL RDW 13.7 (11.0-16.0) % Plt Count 289 (150-500) K/uL MPV 10.8 H (6.0-10.0) fL Neut % (Auto) 75.2 H (45.0-70.0) % Lymph % (Auto) 12.6 L (20.0-40.0) % [place] % (Auto) 10.6 H (3.0-10.0) % Eos % (Auto) 1.5 (1.0-5.0) % Baso % (Auto) 0.1 (0.0-0.5) % Neut # (Auto) 6.22 (2.00-7.50) K/uL Lymph # (Auto) 1.04 L (1.50-4.00) K/uL [place] # (Auto) 0.88 H (0.20-0.80) K/uL Eos # (Auto) 0.12 (0.04-0.40) K/uL Baso # (Auto) 0.01 L (0.02-0.10) K/uL Sodium 136 (136-145) mmol/L Potassium 4.2 D (3.5-5.1) mmol/L Chloride 104 (98-107) mmol/L Carbon Dioxide 20.1 L (21.0-32.0) mmol/L Anion Gap 16.1 H (5.0-15.0) mmol/L BUN 10 D (8-26) mg/dL Creatinine 0.74 (0.55-1.02) mg/dL Est Cr Clr Drug Dosing 48.87 mL/min Estimated GFR (MDRD) > 60 (>60) MLS/MIN BUN/Creatinine Ratio 13.5 (6-25) Glucose 92 D (74-100) mg/dL Calcium 8.7 (8.5-10.1) mg/dL Total Bilirubin 0.7 (0.0-1.0) mg/dL AST 18 (15-37) U/L ALT 18 (12-78) U/L Alkaline Phosphatase 73 (46-116) U/L Total Protein 6.3 L (6.4-8.2) g/dL Albumin 2.6 L (3.4-5.0) g/dL Globulin 3.7 (2.2-4.2) g/dL Albumin/Globulin Ratio 0.7 L (0.8-2.0) TSH, Ultra Sensitive 1.320 (0.358-3.740) uIU/mL Med Orders - Current: Current Medications Acetaminophen (Tylenol) 650 mg PO Q4H PRN PRN Reason: Pain (Mild 1-3)/fever Last Admin: 12/03/19 22:19 Dose: 650 mg Documented by: Apixaban (Eliquis) 5 mg PO BID [facility] Last Admin: 12/04/19 08:44 Dose: 5 mg Documented by: Ceftriaxone Sodium 1 gm/ (Sodium Chloride) 50 mls @ 100 mls/hr IV Q24H [facility] Last Admin: 12/03/19 20:06 Dose: 100 mls/hr Documented by: Lisinopril (Prinivil) 5 mg PO DAILY [facility] Last Admin: 12/04/19 08:43 Dose: 5 mg Documented by: Loperamide HCl (Imodium) 2 mg PO Q6H PRN PRN Reason: Diarrhea Metoprolol Tartrate (Lopressor) 25 mg PO BID [facility] Last Admin: 12/04/19 08:43 Dose: 25 mg Documented by: Morphine Sulfate (Morphine) 2 mg IVPUSH Q2H PRN PRN Reason: Pain (severe 7-10) Last Admin: 12/01/19 18:33 Dose: 2 mg Documented by: Ondansetron HCl (Zofran) 4 mg IV Q4H PRN PRN Reason: Nausea/Vomiting Potassium Chloride (Klor-Con M20) 40 meq PO BEDTIME [facility] Last Admin: 12/03/19 20:10 Dose: 40 meq Documented by: Sodium Chloride (Saline Flush) 10 ml FLUSH ASDIRECTED PRN PRN Reason: IV Use Last Admin: 12/02/19 13:29 Dose: 10 ml Documented by: Discontinued Medications Sodium Chloride (Normal Saline) 1,000 mls @ 75 mls/hr IV ASDIRECTED [facility] Stop: 12/01/19 05:00 Last Admin: 11/30/19 17:15 Dose: 125 mls/hr Documented by: Metronidazole 500 mg/ Premix 100 mls @ 100 mls/hr IV Q8H [facility] Last Admin: 12/01/19 04:10 Dose: 100 mls/hr Documented by: Metronidazole (Flagyl 500 Mg In Ns 100 Ml) Confirm Administered Dose 100 mls @ as directed .ROUTE .STK-MED ONE Stop: 11/30/19 21:47 Last Admin: 11/30/19 21:57 Dose: Not Given Documented by: Metronidazole (Flagyl 500 Mg In Ns 100 Ml) Confirm Administered Dose 100 mls @ as directed .ROUTE .STK-MED ONE Stop: 12/01/19 03:58 Last Admin: 12/01/19 04:12 Dose: Not Given Documented by: Metronidazole (Flagyl 500 Mg In Ns 100 Ml) 100 mls @ 200 mls/hr IV Q8H [facility] Last Admin: 12/02/19 20:52 Dose: Not Given Documented by: Potassium Chloride/Sodium Chloride (Normal Saline With 40 Meq Kcl) Confirm Administered Dose 1,000 mls @ as directed .ROUTE .STK-MED ONE Stop: 12/03/19 09:55 Potassium Chloride/Sodium Chloride (Normal Saline With 40 Meq Kcl) 1,000 mls @ 200 mls/hr IV ASDIRECTED [facility] Stop: 12/03/19 15:29 Last Admin: 12/03/19 10:00 Dose: 200 mls/hr Documented by: Loperamide HCl (Imodium) 2 mg PO ONETIME ONE Stop: 12/03/19 13:57 Last Admin: 12/03/19 17:00 Dose: 2 mg Documented by: Morphine Sulfate (Morphine) 2 mg IVPUSH ONETIME ONE Stop: 11/30/19 16:42 Last Admin: 11/30/19 17:21 Dose: 2 mg Documented by: Morphine Sulfate (Morphine) Confirm Administered Dose 2 mg .ROUTE .STK-MED ONE Stop: 11/30/19 17:31 Last Admin: 11/30/19 17:41 Dose: Not Given Documented by: Pantoprazole Sodium (Protonix Iv) 40 mg IVPUSH ONETIME ONE Stop: 12/02/19 11:06 Last Admin: 12/02/19 13:00 Dose: 40 mg Documented by: Pantoprazole Sodium (Protonix Iv) 40 mg IVPUSH ONETIME ONE Stop: 12/03/19 11:25 Last Admin: 12/03/19 11:50 Dose: 40 mg Documented by:
[2019-12-04 14:57] VITALS: BP 132/84; PULSE 82
== END 2019-12-04 13:25 | disposition home or self-care (01) | DRG 392 ==
LOC: LB.ED 15:32 → LB.MS 18:33 → UNDOADMOB 18:33 → LB.MS 12-03 14:51 → INTOOBSV 12-03 14:55 → OBSVTOIN 12-03 14:55
PROVIDERS: ADMIT Physician Assistant Surgical; ATTEND Physician Assistant Surgical
DX: K52.9 Noninfective gastroenteritis and colitis, unspecified (principal); K52.1 Toxic gastroenteritis and colitis; R19.7 Diarrhea, unspecified; T36.1X5A Adverse effect of cephalosporins and other beta-lactam antibiotics, initial encounter; T37.3X5A Adverse effect of other antiprotozoal drugs, initial encounter; E87.6 Hypokalemia; Z88.6 Allergy status to analgesic agent; I10 Essential (primary) hypertension; Z96.643 Presence of artificial hip joint, bilateral; I48.91 Unspecified atrial fibrillation; Z79.899 Other long term (current) drug therapy; Z88.5 Allergy status to narcotic agent; Z88.0 Allergy status to penicillin; Z79.01 Long term (current) use of anticoagulants; Z90.710 Acquired absence of both cervix and uterus
CPT/HCPCS: 36415; 74176; 80048; 80053; 81001; 82150; 82550; 83516; 83516-59; 83605; 83690; 84443; 85025; 85027; 85651; 87045; 87046; 87329; 87427; 87493; 89055; 96361; 96374; 99285-25; A9270-GY; C9113; J0696; J2270; J3480; J3490; J7030; J7050

== ENCOUNTER 2019-12-24 09:48 | Emergency (ER) | payer MEDICARE ==
[2019-12-24] MEDS ORDERED: traMADol 50 MG Tab ONE (10:30)
[2019-12-24 11:00] VITALS: BP 132/58; PULSE 78
--- NOTE | 2019-12-24 18:14 | ER ---
REASON FOR EMERGENCY ROOM VISIT: Abdominal discomfort. HISTORY: This delightful, alert, 84-year-old woman was hospitalized for 5 days for diarrhea on November 29. Stool cultures were negative for any enteric pathogens and negative for C difficile toxin at that time. Her diarrhea resolved spontaneously 1 week later. She was scheduled to have a colonoscopy a couple of weeks ago, but she failed her appointment and this was not performed. Last night, she started having mid abdominal discomfort which radiated bilaterally to both sides. She said she felt some mild sweats this morning, but did not have any fever. She denies any nausea or vomiting. Her appetite has been reasonably good. She did have a last normal bowel movement yesterday. She has not noticed any blood in her stool. She thinks that she has lost approximately 5 or 10 pounds over the last year, but does not have any anorexia. She was seen in August with some abdominal discomfort which eventuated in her having had a total of 3 CT scans, all of which were negative. There was initially some concern that she had an appendicitis but evidently it was determined she did not have that. PAST MEDICAL HISTORY: Significant for: 1. 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 2. TAHBSO 50 years ago. 3. Rheumatic fever during childhood. 4. Hypertension. MEDICATIONS: Reviewed. See EMR. They include Eliquis, metoprolol, lisinopril, and magnesium. ALLERGIES: ALLERGIC TO PENICILLIN, OXYCODONE, AND VICODIN. SOCIAL HISTORY: She lives with her . She is a nonsmoker or drinker. She has 2 children, who are alive and well. REVIEW OF SYSTEMS: Pertinent positives and negatives as listed in the HPI. PHYSICAL EXAMINATION: GENERAL: Reveals a pleasant, alert woman, who is in no acute distress. VITAL SIGNS: She is afebrile. Heart rate is 78, blood pressure 132/58, respirations 16, O2 sats 100% on room air. HEENT: Head is normocephalic. Oropharynx is normal. NECK: Supple. No adenopathy. CHEST: Clear to auscultation. CARDIAC: Regular rate without murmur. ABDOMEN: Nondistended. Bowel sounds are present. She has minimal tenderness to deep palpation in the epigastrium. There is no percussion tenderness, guarding, or rebound. There is no palpable mass. No hepatosplenomegaly is noted. EXTREMITIES: Warm and pink with no edema and no deformities. SKIN: No rashes. No ecchymoses. LABORATORY DATA: CBC was unremarkable with a WBC of 9800. Her hemoglobin is 14.3. Her CMP was unremarkable (see EMR). She has no elevation of her liver enzymes. Urinalysis was normal. IMPRESSION: Abdominal discomfort on certain etiology at this point in time. PLAN: We did discuss the possibility of another CT scan, but her exam is unremarkable. She is not febrile and her labs are all normal, so nothing suggests an infectious process ongoing at this time. She certainly does not clinically appear to have an acute problem going on, and clinically she does not have a bowel obstruction. At this point, I think it is sensible to give her some tramadol, dispensed #10, 50 mg 1 every 4 to 6 hours p.r.n. for discomfort, to take the edge off and also she assures me that she will follow up with her plans to have a colonoscopy scheduled. She knows how to contact regarding this. All questions were answered. She understands and agrees with this plan. SHERICE /[id number]
== END 2019-12-24 12:30 | disposition home or self-care (01) ==
LOC: LB.ED 09:48
DX: R10.13 Epigastric pain (principal); I10 Essential (primary) hypertension; Z88.0 Allergy status to penicillin; Z88.5 Allergy status to narcotic agent; Z88.8 Allergy status to other drugs, medicaments and biological substances; Z79.01 Long term (current) use of anticoagulants; Z79.899 Other long term (current) drug therapy
CPT/HCPCS: 36415; 80053; 81001; 85025; 99283; 99284; A9270

== ENCOUNTER 2020-01-19 11:31 | Day surgery (SDC) | payer MEDICARE ==
[~2020-01-19 11:31] MED LIST: Metoclopramide 10 MG/2 ML SDV IV PRN; Sodium Chloride 0.9% 1,000 ML IV SCH
[2020-01-19] MEDS ORDERED: Propofol 1,000 MG/100 ML SDV ONE (13:40)
[2020-01-19 14:04] VITALS: BP 117/54; PULSE 57
--- NOTE | 2020-01-20 06:51 | OR ---
DATE OF OPERATION: 01/19/2020 SURGEON: Xu Mcgregor MD PREOPERATIVE DIAGNOSIS: History of chronic abdominal pain and diarrhea. POSTOPERATIVE DIAGNOSIS: History of chronic abdominal pain and diarrhea. PROCEDURE: Colonoscopy with biopsy. ANESTHESIA: General. ESTIMATED BLOOD LOSS: Minimal. COMPLICATIONS: None. INDICATION FOR THE PROCEDURE: The patient is an 84-year-old female who for the past 5 months has had intermittent abdominal pain with diarrhea. She has had multiple CT scans showing at least colitis/enteritis. No definite signs of appendicitis. She is here today for colonoscopy. She has never had a colonoscopy before. DESCRIPTION OF PROCEDURE: Informed consent was obtained from the patient. The patient was taken to the operating room and placed on table in left lateral decubitus position. Monitored anesthesia care was administered. Digital rectal exam performed and was normal. Colonoscope then advanced through the anus directed toward the sigmoid. She did have a tortuous colon. Colonoscope withdrawn and a peds colonoscope then inserted. I was able to make it to the cecum. Cecum was reached and identified by appendiceal orifice and ileocecal valve. The appendix itself did appear intussuscepted into the cecum. Otherwise, no inflammation around this ileocecal valve, otherwise unremarkable. Colonoscope then slowly withdrawn. She did have a small rectal mass just up inside the anal canal and about a centimeter. Cold forceps biopsy of this was taken. Remainder of the mass was left behind. Colonoscope then withdrawn. FINDINGS: Soft rectal mass and likely intussuscepted appendix. We will follow up on her rectal biopsy. If otherwise benign there, we would recommend possible appendectomy pending further rectal biopsies and we would also need excision if otherwise benign or treatment as indicated. KAUSHAL/LOREN /[id number]
== END 2020-01-19 15:15 | disposition home or self-care (01) ==
LOC: LB.SDS 11:31
PROVIDERS: ATTEND Surgery
DX: K62.1 Rectal polyp (principal); G89.29 Other chronic pain; I10 Essential (primary) hypertension; Z88.0 Allergy status to penicillin; Z88.8 Allergy status to other drugs, medicaments and biological substances
CPT/HCPCS: J2704; J7030

== ENCOUNTER 2020-03-03 21:45 | Emergency (ER) | payer MEDICARE ==
[~2020-03-03 21:45] MED LIST changes: -Metoclopramide 10 MG/2 ML SDV IV PRN; +Ondansetron 4 MG Tab.DIS ONE; -Sodium Chloride 0.9% 1,000 ML IV SCH
[2020-03-03] MEDS ORDERED: Sodium Chloride 0.9% 1,000 ML IV SCH (23:00)
[2020-03-03] MEDS: Ondansetron 4 MG Tab.DIS PO ONE (23:10)
--- NOTE | 2020-03-03 23:13 | EDM.PDOC ---
ED HPI GENERAL MEDICAL PROBLEM - General Chief Complaint: General Stated Complaint: black emesis Time Seen by Provider: 03/03/20 22:30 Source of Information: Reports: Patient History Limitations: Reports: No Limitations - History of Present Illness INITIAL COMMENTS - FREE TEXT/NARRATIVE: Patient is an 85 y/o female who presents with sudden onset nausea and vomiting after drinking bowel prep for an elective abdominal surgery tomorrow with Dr. Gabriel ([place]). She states it is black, but cannot say whether it is pure black or with black specks. She denies any abdominal pain, diarrhea, constipation, fever, or bloody/dark stools. Discussed with Dr. Gabriel and he has cancelled her surgery, since she is not keeping the bowel prep down and will reschedule. Other than labs, he doesn't recommend any other workup. Patient states she wants to be admitted and that her is angry that he had to bring her to the emergency department. - Related Data Allergies Allergy/AdvReac Type Severity Reaction Status Date / Time hydrocodone bitartrate Allergy Itching Verified 01/17/20 12:49 [From Vicodin] penicillin Allergy Rash Verified 01/17/20 12:49 Oxycodone ? Allergy Redness Uncoded 12/30/14 18:06 Home Meds: Home Meds lisinopriL [Lisinopril] 10 mg PO BID 08/24/19 [History] Apixaban [Eliquis] 5 mg PO BID 11/30/19 [History] Magnesium Amino Acid Chelate [Magnesium] 250 mg PO DAILY 11/30/19 [History] Metoprolol Tartrate 25 mg PO BID 11/30/19 [History] traMADol [Ultram] 50 mg PO DAILY PRN 01/17/20 [History] Past Medical History Cardiovascular History: Reports: Hypertension Gastrointestinal History: Reports: Other (See Below) Other Gastrointestinal History: abd pain one month ago Other [employer] History: hysterectomy - Past Surgical History Other Musculoskeletal Surgeries/Procedures:: R hip replacements x2, L hip replacments x2, carpal tunnel surgery B Social & Family History - Family History Family Medical History: No Pertinent Family History - Caffeine Use Caffeine Use: Reports: None Caffeine Use Comment: very little - Living Situation & Occupation Living situation: Reports: Occupation: Retired ED ROS GENERAL - Review of Systems Review Of Systems: See Below Constitutional: Reports: No Symptoms HEENT: Reports: No Symptoms Respiratory: Reports: No Symptoms Cardiovascular: Reports: No Symptoms Endocrine: Reports: No Symptoms GI/Abdominal: Reports: Nausea, Vomiting, Other (black emesis) : Reports: No Symptoms Skin: Reports: No Symptoms Neurological: Reports: No Symptoms ED EXAM, GENERAL - Physical Exam Exam: See Below Exam Limited By: No Limitations General Appearance: Alert, No Apparent Distress, Other (Patient vomited during exam and it appeared to be bile; no obvious blood) Head: Atraumatic, Normocephalic Neck: Normal Inspection, Supple, Non-Tender Respiratory/Chest: No Respiratory Distress, Lungs Clear, Normal Breath Sounds, No Accessory Muscle Use, Chest Non-Tender Cardiovascular: Normal Peripheral Pulses, Regular Rate, Rhythm, No Edema, No Murmur GI/Abdominal: Normal Bowel Sounds, Soft, Non-Tender, No Distention Extremities: Normal Inspection, Normal Range of Motion, Non-Tender, No Pedal Edema, Normal Capillary Refill Neurological: Alert, Oriented, CN II-XII Intact, Normal Cognition, Normal Gait, No Motor/Sensory Deficits Psychiatric: Anxious Skin Exam: Warm, Dry, Intact, Normal Color, No Rash Course - Vital Signs Text/Narrative:: zofran, fluids, and labs ordered. Labs unremarkable and patient keeping fluids down - Orders/Labs/Meds Orders: Active Orders 24 hr Category Date Time Status OCCULT BLOOD, GASTRIC [OP] Stat Lab 03/03/20 22:50 Ordered Sodium Chloride 0.9% [Normal Saline] 1,000 ml Med 03/03/20 23:00 Active IV ASDIRECTED Medication Orders Sodium Chloride (Normal Saline) 1,000 mls @ 1,000 mls/hr IV ASDIRECTED SAV Labs: Laboratory Tests 03/03/20 03/03/20 Range/Units 23:29 23:30 WBC 9.5 D (4.0-11.0) K/uL RBC 4.30 (3.80-5.80) M/uL Hgb 13.5 (11.5-16.5) g/dL Hct 39.1 (37.0-47.0) % MCV 91 (76-96) fL MCH 31.4 (27.0-32.0) pg MCHC 34.5 (31.0-35.0) g/dL RDW 14.2 (11.0-16.0) % Plt Count 287 (150-500) K/uL MPV 9.7 (6.0-10.0) fL Neut % (Auto) 70.9 H (45.0-70.0) % Lymph % (Auto) 19.5 L (20.0-40.0) % [place] % (Auto) 8.1 (3.0-10.0) % Eos % (Auto) 1.3 (1.0-5.0) % Baso % (Auto) 0.2 (0.0-0.5) % Neut # (Auto) 6.75 (2.00-7.50) K/uL Lymph # (Auto) 1.85 (1.50-4.00) K/uL [place] # (Auto) 0.77 (0.20-0.80) K/uL Eos # (Auto) 0.12 (0.04-0.40) K/uL Baso # (Auto) 0.02 (0.02-0.10) K/uL Sodium 126 L (136-145) mmol/L Potassium 4.0 (3.5-5.1) mmol/L Chloride 93 L (98-107) mmol/L Carbon Dioxide 20.2 L D (21.0-32.0) mmol/L Anion Gap 16.8 H (5.0-15.0) mmol/L BUN 22 (8-26) mg/dL Creatinine 0.89 (0.55-1.02) mg/dL Est Cr Clr Drug Dosing TNP Estimated GFR (MDRD) > 60 (>60) MLS/MIN BUN/Creatinine Ratio 24.7 (6-25) Glucose 122 H D (74-100) mg/dL Calcium 9.5 (8.5-10.1) mg/dL Total Bilirubin 0.8 D (0.0-1.0) mg/dL AST 28 (15-37) U/L ALT 25 (12-78) U/L Alkaline Phosphatase 65 (46-116) U/L Total Protein 7.0 (6.4-8.2) g/dL Albumin 3.5 (3.4-5.0) g/dL Globulin 3.5 (2.2-4.2) g/dL Albumin/Globulin Ratio 1.0 (0.8-2.0) Meds: Medications Generic Name Dose Route Start Last Admin Trade Name Freq PRN Reason Stop Dose Admin Sodium Chloride 1,000 mls @ 1,000 mls/hr 03/03/20 23:00 Normal Saline IV ASDIRECTED ASV Discontinued Medications Generic Name Dose Route Start Last Admin Trade Name Freq PRN Reason Stop Dose Admin Ondansetron HCl 4 mg 03/03/20 22:50 Zofran IVPUSH 03/03/20 22:51 ONETIME ONE Departure - Departure Time of Disposition: 00:15 Disposition: Home, Self-Care 01 Condition: Good Clinical Impression: Vomiting Qualifiers: Vomiting type: bilious vomiting Nausea presence: with nausea Qualified Code(s): R11.14 - Bilious vomiting - Discharge Information *PRESCRIPTION DRUG MONITORING PROGRAM REVIEWED*: Not Applicable *COPY OF PRESCRIPTION DRUG MONITORING REPORT IN PATIENT [place]: Not Applicable Forms: ED Department Discharge Additional Instructions: zofran 4 mg ODT PO q6-8 hours prn for nausea/vomiting. Follow up with Dr. Montalvo tomorrow to reschedule surgery. - My Orders Last 24 Hours: My Active Orders 03/03/20 22:50 OCCULT BLOOD, GASTRIC [OP] Stat 03/03/20 23:00 Sodium Chloride 0.9% [Normal Saline] 1,000 ml IV ASDIRECTED - Assessment/Plan Last 24 Hours: My Active Orders 03/03/20 22:50 OCCULT BLOOD, GASTRIC [OP] Stat 03/03/20 23:00 Sodium Chloride 0.9% [Normal Saline] 1,000 ml IV ASDIRECTED
[2020-03-04 01:57] VITALS: BP 149/58; PULSE 56
[2020-03-04] MEDS: Ondansetron 4 MG/2 ML SDV IVPUSH ONE (02:16)
== END 2020-03-04 00:26 | disposition home or self-care (01) ==
LOC: LB.ED 21:45
DX: R11.14 Bilious vomiting (principal); I10 Essential (primary) hypertension; Z88.0 Allergy status to penicillin; Z88.5 Allergy status to narcotic agent; Z79.899 Other long term (current) drug therapy; Z90.710 Acquired absence of both cervix and uterus
CPT/HCPCS: 36415; 80053; 82271; 85025; 99283; 99284; A9270-GY

== ENCOUNTER 2023-10-30 21:08 | Emergency (ER) | payer MEDICARE ==
[2023-10-30] MEDS: Lactated Ringers 1,000 ML IV ONE (21:56)
[2023-10-30 22:04] LABS: BASOPHILS ABSOLUTE AUTO 0.03 K/uL (0.02-0.10); BASOPHILS PERCENT AUTO 0.5 % (0.0-0.5); EOSINOPHILS ABSOLUTE AUTO 0.06 K/uL (0.04-0.40); EOSINOPHILS PERCENT AUTO 0.9 % (1.0-5.0); HEMATOCRIT 41.5 % (37.0-47.0); HEMOGLOBIN 14.1 g/dL (11.5-16.5); LYMPHOCYTES ABSOLUTE AUTO 1.38 K/uL (1.50-4.00); LYMPHOCYTES PERCENT AUTO 21.3 % (20.0-40.0); MEAN CORPUSCULAR HEMOGLOBIN 31.8 pg (27.0-32.0); MEAN CORPUSCULAR VOLUME 94 fL (76-96); MEAN PLATELET VOLUME 10.6 fL (6.0-10.0); MONOCYTES ABSOLUTE AUTO 0.77 K/uL (0.20-0.80); MONOCYTES PERCENT AUTO 11.9 % (3.0-10.0); NEUTROPHILS ABSOLUTE AUTO 4.25 K/uL (2.00-7.50); NEUTROPHILS PERCENT AUTO 65.4 % (45.0-70.0); PLATELET COUNT,PLT 326 K/uL (150-500); RED BLOOD CELL COUNT 4.44 M/uL (3.80-5.80); RED CELL DISTRIBUTION WIDTH 13.4 % (11.0-16.0); WHITE BLOOD CELL COUNT,WBC 6.5 K/uL (4.0-11.0)
[2023-10-30 22:17] LABS: ANION GAP 17.8 mmol/L (5.0-15.0); BUN/CREATININE RATIO 28.3 (6-25); CALCIUM 9.6 mg/dL (8.5-10.1); CARBON DIOXIDE,CO2 20.7 mmol/L (21.0-32.0); CREATININE 1.13 mg/dL (0.55-1.02); EST CRCL DRUG DOSING (CG) 29.72 mL/min; MAGNESIUM 1.6 mg/dL (1.8-2.4); POTASSIUM,K 4.5 mmol/L (3.5-5.1)
[2023-10-30] MEDS: Magnesium Sulfate/Water 2 GM in Premix Bag 1 BAG IV ONE (22:27)
[2023-10-30] MEDS: Magnesium Sulfate/Water 50 ML ONE (22:32)
[2023-10-30 22:38] LABS: INFLUENZA A NAA NEGATIVE (NEGATIVE); INFLUENZA B NAA NEGATIVE (NEGATIVE); RESPIRATORY SYNCYTIAL VIR NAA NEGATIVE (NEGATIVE)
[2023-10-30 22:41] LABS: CORONAVIRUS COVID-19 NAA NEGATIVE (NEGATIVE)
[2023-10-30 23:41] VITALS: BP 163/124; PULSE 64
== END 2023-10-30 23:25 | disposition home or self-care (01) ==
LOC: LB.ED 21:08
DX: R19.7 Diarrhea, unspecified (principal); E86.0 Dehydration; I10 Essential (primary) hypertension; Z88.5 Allergy status to narcotic agent; Z88.0 Allergy status to penicillin
CPT/HCPCS: 0241U; 36415; 80048; 83735; 84100; 85025; 96361; 96365; 99283; 99284-25; J3475; J7120